=== PATIENT | female | born 1975 | race Asian ===

== ENCOUNTER → 2019-12-14 12:10 | Outpatient (CLI) | payer OTHER, SELFPAY ==
--- NOTE | 2019-12-14 | DI.US.S_ITS ---
PROCEDURE: US PELVIC COMPLETE INDICATIONS: LEIOMYOMA OF UTERUS TECHNIQUE: Real-time scanning was performed of the pelvic organs, with image documentation. Additional endovaginal scanning was necessary due to incomplete visualization of the adnexal and endometrial structures by transabdominal scanning. COMPARISON: None. FINDINGS: Transabdominal scanning: Limited scanning through the kidneys shows no hydronephrosis. No pathologic free abdominal or pelvic fluid. Endovaginal scanning: Uterus: Uterus is normal in size at 6.6 x 5.1 x 6.7 cm. The endometrium measures 6.0 mm in combined thickness. Posterior intramural fibroid measuring 4.4 x 3.9 x 4.4 cm. Pedunculated subserosal fibroid measuring 3.3 x 2.9 x 5.2 cm. Ovaries: Ovaries are normal bilaterally and there is a 1.5 cm physiologic cyst associated with the left ovary. IMPRESSION: Uterine fibroids, largest measuring up to 5.2 cm. Dictated by: Anand Oviedo [facility] Interpreted: Blake Wakefield MD on 12/14/2019 at 16:42 Approved by: Blake Wakefield M.D. on 12/14/2019 at 17:56
== END ==
PROVIDERS: Referring Provider Physician Assistant; Visit Provider Physician Assistant
DX: D25.1 Intramural leiomyoma of uterus (principal); D25.2 Subserosal leiomyoma of uterus
CPT/HCPCS: 76830; 76856

== ENCOUNTER → 2019-12-21 11:14 | Outpatient (CLI) | payer OTHER, SELFPAY | PROVIDERS: PCP Obstetrics & Gynecology; Referring Provider Obstetrics & Gynecology; Visit Provider Obstetrics & Gynecology | DX: N97.0 Female infertility associated with anovulation (principal) | CPT/HCPCS: 36415; 82397 ==

== ENCOUNTER 2020-07-28 16:44 | Emergency (ER) | payer OTHER, SELFPAY ==
[2020-07-28 16:59] VITALS: BP 136/87; PULSE 65; RESP 16; TEMP 37.2; O2SAT 100
--- NOTE | 2020-07-28 17:14 | ED_ITS ---
HPI - Abdominal Pain <AUGUSTUS Cali - Last Filed: 07/28/20 19:47> General Chief Complaint: Abdominal Pain Stated Complaint: lower abd pain, back pain Time Seen by Provider: 07/28/20 16:49 Source: family Mode of arrival: Family Vehicle Limitations: language barrier (Vietmanmese speaking) History of Present Illness HPI narrative: This is a 44-year-old female, nonsmoker, who has contributory history of fibroids and medical history of mild arthritis presents to ED with significant other with chief complain of right lower quadrant pain. Patient has been having intermittent discomfort around the menstruation but this time pain has been constant for last 4 days. Patient denies associated symptoms such as nausea, vomiting, fever, chills. Patient reports urinary frequency when she drinks tea but denies dysuria, hematuria, or urgency. reports last LMP ib 07/19/2020 and they are trying to conceive and waiting to be evaluated by HEMATOLOGY ONCOLOGY CONSULTANT specialist at [facility]. Patient had ultrasound test done in November before the Covid pandemic started which showed fibroids. 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 Ultrasound was done in November early this year which showed fibroid. Patient reports LMP was 07/19-07/21/20. Patient denies unusual vaginal discharge or history of STIs. Patient reports pain on right suprapubic area rates as 7/10 intermittent, radiates to back and cramping in character. She had not taken baclofen for Naprosyn today and last dose was 2 days ago. Patient denies urinary frequency unless she drinks large amount of liquid and other urinary symptoms. Patient denies other associated symptoms such as fever, chills, nausea or vomiting. Related Data Home Medications Medication Instructions Recorded Confirmed baclofen PO PRN 12/21/19 08/02/20 naproxen PO PRN 12/21/19 08/02/20 Allergies Allergy/AdvReac Type Severity Reaction Status Date / Time No Known Drug Allergies Allergy Verified 08/02/20 14:42 Review of Systems <AUGUSTUS Cali - Last Filed: 07/28/20 19:47> Review of Systems Narrative: General: Denies fever, chills, fatigue, malaise, sweats. HEENT: Denies sinus pain, ear pain, sore throat, difficulty swallowing, dizziness. Respiratory: Denies dyspnea, cough, wheezing, hemoptysis, sputum. Cardiovascular: Denies chest pain, palpitations, orthopnea, edema. Gastrointestinal: See HPI : See HPI Musculoskeletal: Denies weakness, joint pain or bony pain. Skin: Denies rash, skin lesions, or other. Neurologic: Denies weakness, headache, numbness, change in speech, confusion, seizures, incoordination. Psychiatric: No concerning psychosocial issues. 12-point review of systems is negative except for those stated above. Patient History <AUGUSTUS Cali - Last Filed: 07/28/20 19:47> Medical History (Updated 07/28/20 @ 18:51 by AUGUSTUS Cali) Fibroid, uterine (Acute) Painful menstrual periods (Chronic ~2018) Social History Smoking Status: Never smoker Smoking Status: Never smoker alcohol intake frequency: 0-2 drinks per day Substance Use Type: does not use Exam <AUGUSTUS Cali - Last Filed: 07/28/20 19:47> Narrative Exam Narrative: GEN: Alert, oriented x 3, well appearing and nourished, and in no acute distress. Head: Normal cephalic, atraumatic. No scalp or temporal tenderness, palpable mass or rash. EYES: Pupils are equal, round, and reactive to light and accommodation. Extraocular muscles are intact bilaterally. There is no subconjunctival hemorrhage, exudate and sclera non-icteric. ENT: Hearing grossly intact. Nose without bleeding, purulent discharge or deviation. Facial sinuses nontender to palpate. Mucous membrane moist, no mucosal lesion. Throat without erythema, tonsillar hypertrophy or exudate. Uvula in midline, airway patent. Neck: Trachea in midline. No JVD, non-tender without lymphadenopathy. No mass es or thyroid megaly. Supple, non-tender and no meningeal signs. CARDIAC: Normal regular rate and rhythm without murmurs, gallops, or rubs. No chest wall tenderness. No peripheral edema, cyanosis or pallor. Capillary refill is less than 2 seconds. RESPIRATORY: Lungs are clear to auscultate bilaterally. No cough, wheezes, rales, or rhonchi. No stridor, respiratory distress, increase work of breathing, or accessary muscle used. ABD: Abdomen soft and non-distended. No guarding or rebound tenderness to palpate. Tenderness to palpate in right suprapubic region. Bowel sounds are normal in all 4 quadrants. There is no palpable masses or organomegaly. EXT: Full painless ROM of all extremities with no loss of sensation, strength, effusion or edema. SKIN: Warm, dry, normal color for patient. No erythema, lesions or rash over visible areas. BACK: Nontender without deformity or crepitance. No flank tenderness. NEUROLOGICAL: Alert and oriented to place, time and person. Sensation and motor function intact bilaterally. No facial droops, dysphasia. PSYCHIATRIC: Good judgement and reason, without hallucinations, abnormal affect or abnormal behaviors during the examination. Initial Vital Signs Initial Vital Signs: Vital Signs Temperature 98.9 F 07/28/20 16:59 Pulse Rate 65 07/28/20 16:59 Respiratory Rate 16 07/28/20 16:59 Blood Pressure 136/87 07/28/20 16:59 Pulse Oximetry 100 07/28/20 16:59 <Hernan Hinds DO - Last Filed: 08/05/20 18:06> Initial Vital Signs Initial Vital Signs: Vital Signs Temperature 98.9 F 07/28/20 16:59 Pulse Rate 65 07/28/20 16:59 Respiratory Rate 16 07/28/20 16:59 Blood Pressure 136/87 07/28/20 16:59 Pulse Oximetry 100 07/28/20 16:59 Scores <AUGUSTUS Cali - Last Filed: 07/28/20 19:47> GCS [place] coma scale eye opening: Spontaneous [place] coma scale verbal response: Orientated [place] coma scale motor response: Obey commands [place] coma scale total score: 15 qSOFA Altered Mental Status (GCS <15): No Respiratory rate greater than/equal to 22: No Systolic blood pressure less than or equal to 100: No qSOFA Total: 0 0-1 Not High Risk 1-3 High risk Course <AUGUSTUS Cali - Last Filed: 07/28/20 19:47> Orders Ordered: Discontinued Medications Cefazolin Sodium (Keflex 250 Mg Prepack) 1 bottle MISC SEEINSTR ONE Stop: 07/28/20 18:42 Last Admin: 07/28/20 18:52 Dose: 8 cap Documented by: RMARTIN Sodium Chloride (Normal Saline 0.9%) 1,000 mls @ 150 mls/hr IV CONT REYNALDO Last Infusion: 07/28/20 18:18 Dose: 0 mls/hr Documented by: Admin: 07/28/20 18:00 Dose: 150 mls/hr Documented by: RSTONE Sodium Chloride (Normal Saline 0.9%) 1,000 mls @ 1,000 mls/hr IV BOLUS ONE Stop: 07/28/20 19:08 Last Infusion: 07/28/20 19:08 Dose: 0 mls/hr Documented by: Admin: 07/28/20 18:21 Dose: 1,000 mls/hr Documented by: RMARTTAE Ketorolac Tromethamine (Toradol) 15 mg IV NOW ONE Stop: 07/28/20 17:03 Last Admin: 07/28/20 17:59 Dose: 15 mg Documented by: HALLIE Ketorolac Tromethamine (Toradol) 15 mg IV NOW ONE Stop: 07/28/20 17:45 Last Admin: 07/28/20 19:22 Dose: Not Given Documented by: CHARLIE Vital Signs Vital signs: Vital Signs - 8 hr 07/28/20 16:59 07/28/20 19:07 Temperature 98.9 F Pulse Rate 65 65 Respiratory Rate 16 14 Blood Pressure 136/87 128/87 Pulse Oximetry 100 100 <Hernan Hinds DO - Last Filed: 08/05/20 18:06> Orders Ordered: Discontinued Medications Cefazolin Sodium (Keflex 250 Mg Prepack) 1 bottle MISC SEEINSTR ONE Stop: 07/28/20 18:42 Last Admin: 07/28/20 18:52 Dose: 8 cap Documented by: RMARTIN Sodium Chloride (Normal Saline 0.9%) 1,000 mls @ 150 mls/hr IV CONT REYNALDO Last Infusion: 07/28/20 18:18 Dose: 0 mls/hr Documented by: Admin: 07/28/20 18:00 Dose: 150 mls/hr Documented by: RSTONE Sodium Chloride (Normal Saline 0.9%) 1,000 mls @ 1,000 mls/hr IV BOLUS ONE Stop: 07/28/20 19:08 Last Infusion: 07/28/20 19:08 Dose: 0 mls/hr Documented by: Admin: 07/28/20 18:21 Dose: 1,000 mls/hr Documented by: MARCELLE Ketorolac Tromethamine (Toradol) 15 mg IV NOW ONE Stop: 07/28/20 17:03 Last Admin: 07/28/20 17:59 Dose: 15 mg Documented by: HALLIE Ketorolac Tromethamine (Toradol) 15 mg IV NOW ONE Stop: 07/28/20 17:45 Last Admin: 07/28/20 19:22 Dose: Not Given Documented by: CHARLIE Vital Signs Vital signs: Vital Signs - 8 hr 07/28/20 16:59 07/28/20 19:07 Temperature 98.9 F Pulse Rate 65 65 Respiratory Rate 16 14 Blood Pressure 136/87 128/87 Pulse Oximetry 100 100 MDM - Abdominal Pain <Raciel AUGUSTUS Ye - Last Filed: 07/28/20 19:47> Differential Diagnosis Differential diagnosis: Likely abdominal pain, acute appendicitis, calculus of kidney and other (Ovarian cyst, fibroids, ectopic ) Medical Records Attestation: I reviewed the patient's medical records. Lab Data Attestation: I reviewed the patient's lab results. Result diagrams: 07/28/20 17:22 07/28/20 17:22 Labs: Lab Results 07/28/20 07/28/20 07/28/20 Range/Units 17:22 17:22 17:40 WBC 8.4 (4.5-11.0) X10^3/uL RBC 4.45 (4.0-5.2) X10^6/uL Hgb 12.4 (12.0-16.0) g/dL Hct 36.8 (36-46) % MCV 82.8 (80-100) fL MCH 28.0 (26-34) PG MCHC 33.8 (30-36) % RDW 13.4 (11.6-14.8) % Plt Count 334 (150-400) X10^3/uL Neut % (Auto) 54.7 (50-75) % Lymph % (Auto) 35.8 (25-40) % [place] % (Auto) 8.4 (3-14) % Eos % (Auto) 0.8 L (2-4) % Baso % (Auto) 0.3 (0-2) % Neut # (Auto) 4600 (2507-2031) /uL Lymph # (Auto) 3000 (9925-7900) /uL [place] # (Auto) 700 (0-900) /uL Eos # (Auto) 100 (0-450) /uL Baso # (Auto) 0 (0-100) /uL Sodium 139 (137-145) mmol/L Potassium 3.7 (3.4-5.1) mmol/L Chloride 103 (98-107) mmol/L Carbon Dioxide 30 (22-32) mmol/L BUN 17 (7-17) mg/dL Creatinine 1.11 H (0.52-1.04) mg/dL Estimated GFR 53.9 L (>60) mL/min BUN/Creatinine Ratio 15.3 (6-22) Glucose 103 H (70-100) mg/dL Calcium 9.4 (8.4-10.2) mg/dL Total Bilirubin 0.2 (0.2-1.3) mg/dL AST 24 (14-36) IU/L ALT 12 (<35) IU/L Alkaline Phosphatase 47 (38-126) U/L Total Protein 8.2 (6.3-8.2) g/dL Albumin 4.6 (3.5-5.0) g/dL Globulin 3.6 (1.7-4.1) g/dL Albumin/Globulin Ratio 1.3 (1.0-2.8) Lipase 157 (23-300) U/L Urine RBC 0-1/hpf (0-5/HPF) Urine WBC 5-10/hpf H (0-5/HPF) Ur Squamous Epith Cells 1-5 /hpf (0-5/HPF) Urine Bacteria Moderate (10-30) H (None) Ur Culture Indicated? Specimen cultured Point of care testing: Point of Care Testing Test Results Negative Urine Dip Bedside Urine Glucose Negative Bedside Urine Bilirubin - Negative Bedside Urine Ketone - Negative Urine Specific [place] 1.020 Bedside Urine Occult Blood ++ Bedside Urine pH 6.0 Bedside Urine Protein - Negative Bedside Urine Urobilinogen - Negative Bedside Urine Nitrite - Negative Bedside Urine Leukocytes +/- 15 Esterase MDM Narrative Medical decision making narrative: This is a 44 year female who presents to ED with chief complain of right-sided suprapubic pain radiating to back without fe booker, chills, nausea or vomiting, vaginal discharge, vaginal bleeding. Patient reports urinary frequency only when she drinks large amount of liquid. No other urinary symptoms. 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 Patient and her partner are trying to conceive. Patient reports the location and character of pain are same greater than 6 months but today pain has radiated to back and pain remaining even after menstruation. No leukocytosis or elevated neutrophils. Slightly decreased kidney function with creatinine level of 1.11 with GFR of 53.9. No baseline kidney function test in the past to compare. Otherwise unremarkable chemistry, liver function test, and lipase. Urine test was negative for . POC urine test shows small amount of leuk esterase and occult blood. Patient's presentation and physical exam is not consistent with appendicitis or renal stone/colic. Micro urine test shows urine WBC of 5-10 and moderate bacteria of 10-30. Given normal blood test and unremarkable abdominal physical exam with abdominal pain that has not changed for last 6 months with known uterine fibroids, further imaging test was deferred at this time. Patient was treated with low dose of Keflex 250 mg (renal adjusted dose) q.i.d. for 7 days for UTI. Strict Return precautions were discussed with patient and advised to follow up with primary care physician and railroad wheels and axles inspector provider for her symptoms and slightly decreased kidney function test. Patient and significant other verbalized understanding in agreement with the treatment plan. <Hernan Hinds, - Last Filed: 08/05/20 18:06> Lab Data Labs: Lab Results 07/28/20 07/28/20 07/28/20 Range/Units 17:22 17:22 17:40 WBC 8.4 (4.5-11.0) X10^3/uL RBC 4.45 (4.0-5.2) X10^6/uL Hgb 12.4 (12.0-16.0) g/dL Hct 36.8 (36-46) % MCV 82.8 (80-100) fL MCH 28.0 (26-34) PG MCHC 33.8 (30-36) % RDW 13.4 (11.6-14.8) % Plt Count 334 (150-400) X10^3/uL Neut % (Auto) 54.7 (50-75) % Lymph % (Auto) 35.8 (25-40) % [place] % (Auto) 8.4 (3-14) % Eos % (Auto) 0.8 L (2-4) % Baso % (Auto) 0.3 (0-2) % Neut # (Auto) 4600 (4711-1925) /uL Lymph # (Auto) 3000 (0746-9768) /uL [place] # (Auto) 700 (0-900) /uL Eos # (Auto) 100 (0-450) /uL Baso # (Auto) 0 (0-100) /uL Sodium 139 (137-145) mmol/L Potassium 3.7 (3.4-5.1) mmol/L Chloride 103 (98-107) mmol/L Carbon Dioxide 30 (22-32) mmol/L BUN 17 (7-17) mg/dL Creatinine 1.11 H (0.52-1.04) mg/dL Estimated GFR 53.9 L (>60) mL/min BUN/Creatinine Ratio 15.3 (6-22) Glucose 103 H (70-100) mg/dL Calcium 9.4 (8.4-10.2) mg/dL Total Bilirubin 0.2 (0.2-1.3) mg/dL AST 24 (14-36) IU/L ALT 12 (<35) IU/L Alkaline Phosphatase 47 (38-126) U/L Total Protein 8.2 (6.3-8.2) g/dL Albumin 4.6 (3.5-5.0) g/dL Globulin 3.6 (1.7-4.1) g/dL Albumin/Globulin Ratio 1.3 (1.0-2.8) Lipase 157 (23-300) U/L Urine RBC 0-1/hpf (0-5/HPF) Urine WBC 5-10/hpf H (0-5/HPF) Ur Squamous Epith Cells 1-5 /hpf (0-5/HPF) Urine Bacteria Moderate (10-30) H (None) Ur Culture Indicated? Specimen cultured Point of care testing: Point of Care Testing Test Results Negative Urine Dip Bedside Urine Glucose Negative Bedside Urine Bilirubin - Negative Bedside Urine Ketone - Negative Urine Specific [place] 1.020 Bedside Urine Occult Blood ++ Bedside Urine pH 6.0 Bedside Urine Protein - Negative Bedside Urine Urobilinogen - Negative Bedside Urine Nitrite - Negative Bedside Urine Leukocytes +/- 15 Esterase Discharge Plan Departure Patient Disposition: Home Clinical Impression: Decreased renal function UTI (urinary tract infection) Qualifiers: Urinary tract infection type: site unspecified Hematuria presence: with hematuria Qualified Code(s): N39.0 - Urinary tract infection, site not specified Fibroid, uterine Qualifiers: Uterine leiomyoma location: unspecified location Qualified Code(s): D25.9 - Leiomyoma of uterus, unspecified Discharge Date/Time: 07/28/20 20:01 Instructions: DI for Uterine Fibroids, DI for Urinary Tract Infection (UTI), DI for Abdominal Pain-Adult Activity Restrictions/Additional Instructions: You have been diagnosed with [UTI, known fibroids, slightly decreased kidney function. Urine culture is pending. You were treated with 1st dose of Keflex 250 mg in ED. ultrasound back in November 2019 shows posterior intramural fibroid and pedunculted subserosal fibroids. Cr today is 1.11 and eGFR is 53.9. You were provided with IV fluid and medicated with IV Toradol 15mg. You will receive a phone call from us if requires changes in antibiotic medications.]. What to do: *Take your medications as directed. Please take [id number] Tylenol and pain medication that you have at home as needed. Please take it with food to decrease GI irritation. Please hydrate adequately next few days. Additional 5 day course of Keflex has been transmitted to [facility]. *Follow up with your primary care provider in 2-3 days, call for an appointment. Let them know you were seen in the ED and that we asked you to be seen in follow up. Please follow-up with abdominal pain, function test. Please contact railroad wheels and axles inspector specialist to follow up on uterine fibroids and pain. *Return to ED if you have any new, worsening, or concerning symptoms, such as [worsening pain, fever, chills, heavy vaginal bleeding, back pain, unable to tolerate fluids, chest pain, breathing difficulty, or any acute concerns]. Prescriptions: No Action naproxen PO PRNRF: 0 baclofen PO PRNRF: 0 Referrals: Isabelle Kee MD [Primary Care Provider] - <Hernan Hinds DO - Last Filed: 08/05/20 18:06> Cosign ED Attending Rachelature Attestation: I was immediately available in the department for consultation. This documentation has been reviewed and I agree with assessment and plan. Supervised by Hernan Hinds, DO
[2020-07-28 17:30] LABS: Add Manual Diff / Slide Review NO; Basophils Absolute Auto 0 /uL (0-100); Basophils Percent Auto 0.3 % (0-2); Eosinophils Absolute Auto 100 /uL (0-450); Eosinophils Percent Auto 0.8 % (2-4); Hematocrit 36.8 % (36-46); Hemoglobin 12.4 g/dL (12.0-16.0); Lymphocytes Absolute Auto 3000 /uL (1100-4500); Lymphocytes Percent Auto 35.8 % (25-40); Mean Corpuscular HGB Conc 33.8 % (30-36); Mean Corpuscular Volume 82.8 fL (80-100); Monocytes Absolute Auto 700 /uL (0-900); Monocytes Percent Auto 8.4 % (3-14); Neutrophils Absolute Auto 4600 /uL (1500-7000); Neutrophils Percent Auto 54.7 % (50-75); Platelet Count 334 X10^3/uL (150-400); Red Blood Cell Count 4.45 X10^6/uL (4.0-5.2); Red Cell Distribution Width 13.4 % (11.6-14.8); White Blood Cell Count 8.4 X10^3/uL (4.5-11.0)
[2020-07-28 17:43] LABS: Alanine Aminotransferase 12 IU/L (<35); Albumin 4.6 g/dL (3.5-5.0); Albumin Globulin Ratio 1.3 (1.0-2.8); Alkaline Phosphatase 47 U/L (38-126); Aspartate Aminotransferase 24 IU/L (14-36); BUN Creatinine Ratio 15.3 (6-22); Bilirubin Total 0.2 mg/dL (0.2-1.3); Blood Urea Nitrogen 17 mg/dL (7-17); Calcium 9.4 mg/dL (8.4-10.2); Carbon Dioxide 30 mmol/L (22-32); Chloride 103 mmol/L (98-107); Estimated Glomerular Filt Rate 53.9 mL/min (>60); Globulin 3.6 g/dL (1.7-4.1); Glucose 103 mg/dL (70-100); HEMOLYSIS < 15 (0-50); Lipase 157 U/L (23-300); Potassium 3.7 mmol/L (3.4-5.1); Sodium 139 mmol/L (137-145); Total Protein 8.2 g/dL (6.3-8.2)
[2020-07-28 17:56] LABS: Bacteria Urine Moderate (10-30); Culture Indicated Urine Specimen Cultured; RBC Urine 0-1/HPF (0-5/HPF); Squamous Epithelial Cell Urine 1-5 /HPF (0-5/HPF); WBC Urine 5-10/HPF (0-5/HPF)
[2020-07-28] MEDS: KETOROLAC 60 MG/2 ML VIAL 15 MG IV (17:59)
[2020-07-28] MEDS: SODIUM CHLORIDE 0.9% 1,000 ML 150 ML IV (18:00)
[2020-07-28] MEDS: SODIUM CHLORIDE 0.9% 1,000 ML 1000 ML IV (18:21)
[2020-07-28] MEDS: cephALEXin 250 MG PREPACK 1 BOTTLE MISC (18:52)
[2020-07-28 19:07] VITALS: BP 128/87; PULSE 65; RESP 14; O2SAT 100
== END 2020-07-28 20:01 | disposition home or self-care (01) ==
PROVIDERS: Emergency Provider Nurse Practitioner Family; PCP Obstetrics & Gynecology
DX: N39.0 Urinary tract infection, site not specified (principal); D25.9 Leiomyoma of uterus, unspecified; N28.9 Disorder of kidney and ureter, unspecified
CPT/HCPCS: 36415; 80053; 81003; 81015; 81025; 83690; 85025; 87086; 96361; 96374; 99284; J1885

== ENCOUNTER 2020-09-03 11:34 | Day surgery (SDC) | payer OTHER, SELFPAY ==
[2020-08-29 13:40] VITALS: BMI 27.8
[2020-09-03] VITALS (12 sets, daily range): BP systolic 97–116; BP diastolic 60–72; PULSE 63–79; RESP 12–19; TEMP 36.2–37.5; O2SAT 97–100; BMI 27.2
--- NOTE | 2020-09-03 | PATH_ITS ---
[facility] Accession Number: [id number] . 01 Material submitted: . ovary - RIGHT OVARIAN CYST . 02 Diagnosis: Right Ovarian Cyst, Excision: Fragments of benign hemorrhagic corpus luteum cyst. No evidence of malignancy. [facility] 09/05/2020 1503 Local . 02 Comment: As part of routine quality improvement manager, Dr. Diaz has reviewed this case and agrees with the diagnosis above. . . . . 02 Electronically signed: . Howie Gomez MD, PhD, Pathologist NPI- [id number] . 01 Gross description: . Received in formalin, labeled right ovarian cyst, and consists of multiple thao to thao-pink fragments of soft tissue measuring 2.5 x 2.0 x 0.8 cm in aggregate. No papillary excrescences are identified. The specimen is serially sectioned and entirely submitted in cassettes A1-A2. ([id number]) /MRV 09/04/2020 1153 Local . 02 Pathologist provided ICD-10: N83.11 . 02 CPT . 148507 Performed at: 01 [facility] [address], [place], [place] [id number] MD Jamey Velasco MD Phone: [phone] Performed at: 02 [facility] [address] [place], [place] [id number] MD Amberly Diaz MD Phone: [phone]
[2020-09-03 12:38] LABS: COVID19 -Nasal RAPID Negative (Negative)
[2020-09-03] MEDS: LACTATED RINGERS 1,000 ML 42 ML IV ×2 (13:07→15:25)
--- NOTE | 2020-09-03 13:21 | SUR.PREOP ---
pt denied overlock operator for surgical visit. pt at bedside during pre op during admit translating for pt.
--- NOTE | 2020-09-03 13:32 | P.HP_ITS ---
History of Present Illness History of Present Illness Date Patient Seen: 09/03/20 Time Patient Seen: 13:32 Chief complaint: [facility] [place] Narrative: Patient is a 44-year-old 0 who presents for a diagnostic laparoscopy with excision pedunculated fibroid This is being done due to pelvic pain, intermittent menorrhagia, and a pedunculated fibroid Patient History Medical History (Updated 08/12/20 @ 00:00 by ) Fibroid, uterine Painful menstrual periods (~2018) Family & Social History Social History: household members spouse Tobacco & Substance use: Smoking Status Never smoker alcohol intake never alcohol intake frequency 0-2 drinks per day Substance Use Type does not use Meds Home Medications and Allergies Home Medications Medication Instructions Recorded Confirmed Type ibuprofen 600 mg PO TID 09/03/20 09/03/20 History Allergies Allergy/AdvReac Type Severity Reaction Status Date / Time No Known Drug Allergies Allergy Verified 09/03/20 12:56 Exam Vital Signs (past 8 hours): - 09/03/20 12:58 Temperature 97.1 F L Pulse Rate 73 Respiratory Rate 16 Blood Pressure 110/69 Pulse Oximetry 100 Oxygen Delivery Method Room Air Narrative Exam Narrative: HEENT: No thyromegaly, no anterior cervical or supraclavicular lymphadenopathy. Lungs:Clear to auscultation bilaterally, no wheezes. Cardiovascular: Regular rate and rhythm, no murmurs, rubs, or gallops. Abdomen: No scars. No hepatosplenomegaly. No masses palpable. External genitalia: Normal Vagina: Normal Cervix: Normal Bimanual exam: 11 Week size uterus. Mobile. Fibroid palpable at the fundus of the uterus Rectal: No masses. Objective Labs Labs: Laboratory Results - last 24 hr 09/03/20 11:41 COVID-19 PCR Negative Assessment & Plan Assessment & Plan narrative: Assessment: 44-year-old 0 with a fibroid uterus, intermittent menorrhagia, and pelvic pain Plan: Diagnostic laparoscopy with excision pedunculated fibroid and chromotubation The risks, benefits, and alternatives to the procedure were explained to the patient. The risks including bleeding, infection, injury to the bowel, bladder, or ureters. She understands these risks and agrees to proceed. A full par Q was held and consent form was signed. COVID-19 COVID-19 status: Negative Result date/Date tested (Pos, Neg/Pending): 09/03/20 Time Spent With Patient Time with patient: 15-24 minutes
--- NOTE | 2020-09-03 13:35 | PM.PREOP ---
Pre-operative Note COVID-19 COVID-19 status: Negative Result date/Date tested (Pos, Neg/Pending): 09/03/20 Interval Note History & Physical reviewed/Exam performed by Physician: Yes Changes to H&P: No H&P completed within 30 days and has changed as indicated here:: 09/03/20
--- NOTE | 2020-09-03 14:09 | SUR.OPER ---
Lithotomy on padded OR bed. [place] Pad Positioner under torso. Head on pillow, arms padded and tucked at sides. Legs secured in padded yellow fins stirrups.
[2020-09-03] MEDS: BUPIVACAINE 0.5% W/ EPI (PF) 30 ML VIAL INJ (14:28)
[2020-09-03] MEDS: METHYLENE BLUE 50 MG/10 ML VIAL 10 MG IV (14:29)
--- NOTE | 2020-09-03 14:45 | P.OP_ITS ---
Operative Date/Time/Diagnoses Date of procedure: 09/03/20 Time of procedure: 14:46 Pre-op diagnosis: Pelvic pain Pedunculated fibroid Intermittent menorrhagia Post-op diagnosis: same Procedure & Clinicians Procedure: Procedures Operation Date: 09/03/20 13:00 Actual Procedures Side Surgeon p Diagnostic Laparoscopy,with excision of right ovarian cyst, Chromopertubation Helen Stone MD Indications: Intermittent menorrhagia Pedunculated fibroid Pelvic pain Dysmenorrhea Surgeon: Helen Stone Anesthesia Type: General Operative Notes Findings: Twelve week size multi fibroid uterus Large hemorrhagic cyst on the tip of the left ovary measuring 4 cm Normal liver and gallbladder Normal right ovary and tube Normal left tube Bilateral tubes patent Closure Type: primary Specimen(s): other (Right ovarian cyst) Estimated blood loss (mL): 5 Blood products transfused: none Procedure in detail: After informed consent was obtained, the patient was taken to the operating room where she was placed in the dorsal supine position. After adequate general endotracheal anesthesia was achieved, she was placed in the dorsal lithotomy position, and prepped and draped in the usual sterile fashion. A time-out was performed. A bivalve speculum was placed into the vagina and the anterior lip of the cervix grasped with a single-tooth tenaculum. The cervical os was sequentially dilated until the Zumi uterine manipulator could pass easily into the endometrial cavity. Single-tooth tenaculum was removed from the anterior lip of the cervix. The bivalve speculum was removed from the vagina. Attention was then turned to the abdomen where 6 cc of 0.5% Marcaine with epinephrine were injected in the umbilical fold. A 5 mm incision was made. The Veress needle was placed into the peritoneal cavity, and its placement confirmed by aspiration and drop test. The abdominal cavity was insufflated with 3.1 L of CO2. The Veress needle was removed and a 5 mm trocar was placed without difficulty. Initial inspection of the pelvis and abdomen revealed the findings noted above. Two other 5 mm incisions were made after 6 cc of 0.5% Marcaine with epinephrine were injected. One was above the pubic symphysis, and the other was 4 cm lateral to the midline on the left side. The left ovarian cyst was grasped with an atraumatic grasper. Using the PlasmaKinetic was settings of 40 w, the cyst was excised. The edges were cauterized for hemostasis. The uterus was deviated due to the fibroid. There appeared to be a large fibroid in the fundus of the uterus but it was not pedunculated it was intramural. The tube on the right side was entering the uterus far below the fibroid. There was a 2nd fibroid in the lower uterine segment posteriorly. The fundal fibroid measured approximately 8 cm. The lower uterine segment fibroid about 6 cm. Dilute methylene blue was placed through the Zumi uterine manipulator and there was spill from both tubes. The instruments were removed from the abdomen. The CO2 was allowed to escape. The incisions were repaired with 4 0 Biosyn in a subcuticular fashion. Mastisol, Steri-Strips, and bandages were placed. The Zumi uterine manipulator was removed from the uterus. Sponge, lap, and instrume nt counts were correct x2. The patient tolerated the procedure well, and was taken to PACU in stable condition. Complications: none Post-operative Condition: stable Disposition: PACU Plan for aftercare: Home after recovery
--- NOTE | 2020-09-03 16:44 | SUR.PHASEII ---
returned with filled prescriptions, dressings remained c/d/i., small amount of bloody drainage on pad, left when ready and left in stable condition.
== END 2020-09-03 16:35 | disposition home or self-care (01) ==
PROVIDERS: PCP Obstetrics & Gynecology; Referring Provider Obstetrics & Gynecology; Visit Provider Obstetrics & Gynecology
PROC: (CPT 49320; principal; 2020-09-03 13:00)
DX: N83.11 Corpus luteum cyst of right ovary (principal); D25.1 Intramural leiomyoma of uterus; Z11.59 Encounter for screening for other viral diseases
CPT/HCPCS: 58662; 87635; J1885; J2250; J3010; Q9968

== ENCOUNTER → 2020-12-28 09:57 | Outpatient (CLI) | payer OTHER, SELFPAY ==
[2020-12-28 10:51] LABS: HCG Quantitative /Beta subunit 274.9 mIU/mL
== END ==
PROVIDERS: Referring Provider Obstetrics & Gynecology; Visit Provider Obstetrics & Gynecology
DX: Z32.02 Encounter for pregnancy test, result negative (principal)
CPT/HCPCS: 36415; 84702

== ENCOUNTER → 2021-01-01 09:00 | Outpatient (CLI) | payer OTHER, SELFPAY ==
[2021-01-01 10:27] LABS: HCG Quantitative /Beta subunit 1425.4 mIU/mL
== END ==
PROVIDERS: Referring Provider Obstetrics & Gynecology; Visit Provider Obstetrics & Gynecology
DX: Z32.01 Encounter for pregnancy test, result positive (principal)
CPT/HCPCS: 36415; 84702

== ENCOUNTER 2021-01-21 22:49 | Emergency (ER) | payer OTHER, SELFPAY ==
[2021-01-21 23:00] VITALS: BP 144/78; PULSE 74; RESP 16; TEMP 36.9; O2SAT 99
--- NOTE | 2021-01-21 23:06 | DI.US.S_ITS ---
PROCEDURE: US OB <= 14 WEEKS FETUS INDICATIONS: CRAMPING, BLEEDING OUTSIDE/PRIOR DATING DATA: Last menstrual period (LMP): 11/29/20 LMP-based estimated date of delivery (EMILI): 09/05/21. First dating scan (date and location): 01/21/21 this study. Estimated date of delivery (EMILI) from first dating scan: 09/07/21. TECHNIQUE: Real-time scanning was performed of the fetus and maternal pelvic organs, with image documentation. Endovaginal scanning was also performed to better visualize the fetus and maternal ovaries. COMPARISON: None. FINDINGS: Embryo: [place]-rump length 1.2 cm correlates with a gestational age of 7 weeks 3 days, +/-5 days. heart rate at 163 beats per minute is present. Note is made of 2 uterine fibroids, intramural, measuring up to 6.5 cm anterior at the midline and 6.3 cm posterior on the left. Measurement variability in dating: +/- 4 weeks by LMP, +/- 7 days by mean sac diameter (use before 6 weeks gestation if crown-rump length not able to be measured), +/- 5 days by crown-rump length (up to 8 weeks 6 days gestation), +/- 7 days by crown-rump length (up to 13 weeks 6 days gestation). Maternal organs: Ovaries not seen . IMPRESSION: Single living intrauterine gestation with delivery date projected to be centered on 09/07/21, plus or minus 5 days. Two uterine fibroids involve the myometrium measuring up to 6.5 cm. Dictated by: Vikas Cano M.D. on 01/22/2021 at 9:48 Approved by: Vikas Cano M.D. on 01/22/2021 at 9:50
[2021-01-21 23:24] LABS: Add Manual Diff / Slide Review NO; Basophils Absolute Auto 100 /uL (0-100); Basophils Percent Auto 1.1 % (0-2); Eosinophils Absolute Auto 100 /uL (0-450); Hematocrit 37.3 % (36-46); Hemoglobin 12.4 g/dL (12.0-16.0); Lymphocytes Absolute Auto 3400 /uL (1100-4500); Lymphocytes Percent Auto 31.4 % (25-40); Mean Corpuscular HGB Conc 33.4 % (30-36); Mean Corpuscular Hemoglobin 27.9 PG (26-34); Mean Corpuscular Volume 83.5 fL (80-100); Monocytes Absolute Auto 800 /uL (0-900); Monocytes Percent Auto 7.6 % (3-14); Neutrophils Absolute Auto 6400 /uL (1500-7000); Neutrophils Percent Auto 58.9 % (50-75); Platelet Count 350 X10^3/uL (150-400); Red Blood Cell Count 4.46 X10^6/uL (4.0-5.2); Red Cell Distribution Width 13.5 % (11.6-14.8); White Blood Cell Count 10.8 X10^3/uL (4.5-11.0)
[2021-01-22 00:10] LABS: HCG Quantitative /Beta subunit 46934 mIU/mL
--- NOTE | 2021-01-22 00:19 | ED_ITS ---
HPI - Female Genitourinary General Chief complaint: OB/Uterine Contractions Stated complaint: 7 WKS BLEEDING Time Seen by Provider: 01/21/21 23:17 Source: patient and family Mode of arrival: Ambulatory Limitations: no limitations History of Present Illness HPI Narrative: 45-year-old female nonsmoker is a at 7 weeks with a known history of fibroids presents with her significant other and a chief complaint of mild lower abdominal cramping in the passage of a decently large blood clot earlier tonight. She has no ongoing pain or bleeding. She denies any fever or chills. She denies any shortness of breath, dizziness, weakness or lightheadedness. She is established with Dr. Stone for follow-up next week. Complaint: vaginal bleeding Onset (ago): hour(s) Location: suprapubic Severity: mild Quality: Cramping Duration: constant Relieving factors: none Exacerbating factors: none Vaginal discharge: dark blood and blood clots Patient : Yes Related Data Home Medications Medication Instructions Recorded Confirmed acetaminophen 325 mg tablet 650 mg PO Q6H PRN 01/21/21 01/21/21 prenat.vits,rob,[id number] 1 tab PO DAILY 01/21/21 01/21/21 Allergies Allergy/AdvReac Type Severity Reaction Status Date / Time No Known Drug Allergies Allergy Verified 01/21/21 10:20 Review of Systems Constitutional Constitutional: Denies chills, Denies fatigue, Denies fever(s), Denies frequent falls, Denies lethargy and Denies weakness Eyes Eyes: Denies change in vision, Denies eye discharge, Denies irritation and Denies loss of vision ENT Ears, Nose, Mouth, and Throat: Denies change in voice, Denies dizziness, Denies neck pain, Denies sore throat and Denies throat swelling Cardiovascular Cardiovascular: Denies chest pain, Denies irregular heart rhythm, Denies lightheadedness, Denies palpitations, Denies dyspnea, Denies dyspnea on exertion and Denies orthopnea Respiratory Respiratory: Denies cough, Denies dyspnea, Denies dyspnea on exertion and Denies wheezing Gastrointestinal Gastrointestinal: Denies abdominal pain, Denies change in bowel habits, Denies diarrhea, Denies nausea and Denies vomiting Genitourinary Genitourinary: Reports abnormal vaginal bleeding Musculoskeletal Musculoskeletal: Denies neck pain and Denies numbness Integumentary/Breasts Skin/Breast: Denies pruritus, Denies erythema, Denies rash and Denies wounds Neurologic Neurologic: Denies behavioral changes, Denies confusion, Denies dizziness, Denies frequent falls, Denies loss of vision, Denies numbness and Denies weakness Psychiatric Psychiatric: Denies anxiety, Denies behavioral changes, Denies confusion, Denies depression, Denies homicidal ideation and Denies suicidal ideation Endocrine Endocrine: Denies fatigue, Denies flushing and Denies palpitations Hematologic/Lymphatic Hematologic/Lymphatic: Denies easy bruising Allergic/Immunologic Allergic/Immunologic: Denies urticaria, Denies throat swelling and Denies wheezing Patient History Medical History Accident AMA (advanced maternal age) primigravida 35+ Chronic headaches Fibroid, uterine History of indigestion Neck pain Painful menstrual periods (~2017) Surgical History S/P laparoscopy (~09/03/20) S/P wisdom tooth extraction (~10/2019) Family History Mother No problems noted. Father CVA (cerebral vascular accident) Grandmother No problems noted. Grandfather No problems noted. Grandmother No problems noted. Grandfather No problems noted. Sister Joint impingement affecting osseous tissue Sister No problems noted. Brother No problems noted. alcohol intake frequency: 0-2 drinks per day Substance Use Type: does not use Exam Narrative Exam Narrative: GEN: AOx3 and in mild distress EYES: Pupils are equal, round, and reactive to light and accommodation. Extr aoccular muscles are intact bilaterally. There is no subconjunctival hemorrhage or exudate. CHEST: Lungs are clear to auscultation bilaterally and free of wheezes, rales, or rhonchi. Heart rate is regular rhythm, there are no murmurs, clicks, rubs, or gallops. There is no chest wall tenderness. ABD: Abdomen is soft and nontender. There is no guarding or rebound. Bowel sounds are normal in all 4 quadrants. There is no mass or organomegaly. EXT: Full painless ROM of all extremities with no loss of sensation or strength. SKIN: Warm, pink, and dry. No erythema or rash Initial Vital Signs Initial Vital Signs: Vital Signs Temperature 98.4 F 01/21/21 23:00 Pulse Rate 74 01/21/21 23:00 Respiratory Rate 16 01/21/21 23:00 Blood Pressure 144/78 H 01/21/21 23:00 Pulse Oximetry 99 01/21/21 23:00 Course Orders Ordered: ED Orders 01/21/21 23:05 Complete Blood Count AUTO DIFF Stat HCG Quantitative /Beta subunit Stat 01/21/21 23:06 US OB <= 14 weeks fetus Stat 01/22/21 00:06 ABO RH Type Stat Vital Signs Vital signs: Vital Signs - 8 hr 01/21/21 23:00 01/22/21 00:45 Temperature 98.4 F Pulse Rate 74 70 Respiratory Rate 16 16 Blood Pressure 144/78 H 112/63 Pulse Oximetry 99 100 MDM - Female Genitourinary Lab Data Result diagrams: 01/21/21 23:05 Labs: Lab Results 01/21/21 01/21/21 01/21/21 Range/Units 23:05 23:05 23:05 WBC 10.8 (4.5-11.0) X10^3/uL RBC 4.46 (4.0-5.2) X10^6/uL Hgb 12.4 (12.0-16.0) g/dL Hct 37.3 (36-46) % MCV 83.5 (80-100) fL MCH 27.9 (26-34) PG MCHC 33.4 (30-36) % RDW 13.5 (11.6-14.8) % Plt Count 350 (150-400) X10^3/uL Neut % (Auto) 58.9 (50-75) % Lymph % (Auto) 31.4 (25-40) % [place] % (Auto) 7.6 (3-14) % Eos % (Auto) 1.0 L (2-4) % Baso % (Auto) 1.1 (0-2) % Neut # (Auto) 6400 (2854-7238) /uL Lymph # (Auto) 3400 (2240-9333) /uL [place] # (Auto) 800 (0-900) /uL Eos # (Auto) 100 (0-450) /uL Baso # (Auto) 100 (0-100) /uL HCG, Quant 31464 mIU/mL Blood Type B Positive Imaging Data US - OB: Radiologist's Impression: IUP 7weeks 3 days, FHT 160s. Otherwise normal. MDM Narrative Medical decision making narrative: at 7 weeks with very minimal symptoms in the passage of a clot earlier. Exam is very reassuring, no ongoing symptoms, stable vital signs. Ultrasound demonstrates an IUP with no significant findings otherwise. Rh type noted to be B positive. Patient has established relationship with Dr. Stone and plans to follow up next week. They have been given extensive return precautions and questions are answered to their apparent satisfaction Discharge Plan Departure Patient Disposition: Home Clinical Impression: Bleeding in early Instructions: DI for -- Discomforts and Remedies Activity Restrictions/Additional Instructions: *You have been diagnosed with [1st trimester bleeding. Blood counts and ultrasound are very reassuring, however close follow-up with Dr. Stone is important to continue to follow this] *What to do: *Take medications as directed *Follow up with your primary care provider in 2-3 days, call for an appointment. Let them know you were seen in the Emergency Department and that we ask that you be seen in follow up *Return to ER if you should have any new, worsening or concerning symptoms, such as [bleeding through more than 1 pad per hour, increasing pain, shortness o f breath, lightheadedness, fever greater than 101 or other bothersome symptoms] Prescriptions: No Action prenat.vits,rob,eqv-rtjb-cnkdc Tablet 1 tab PO DAILY RF: 0 acetaminophen [Tylenol] 325 mg tablet 650 mg PO Q6H PRNRF: 0 Referrals: Helen Stone MD [Primary Care Provider] -
[2021-01-22 00:45] VITALS: BP 112/63; PULSE 70; RESP 16; O2SAT 100
== END 2021-01-22 00:46 | disposition home or self-care (01) ==
PROVIDERS: Emergency Provider Emergency Medicine; PCP Obstetrics & Gynecology
DX: O20.9 Hemorrhage in early pregnancy, unspecified (principal); Z3A.01 Less than 8 weeks gestation of pregnancy
CPT/HCPCS: 36415; 76801; 76817; 84702; 85025; 86900; 86901; 99283; 99284

== ENCOUNTER → 2021-01-28 16:15 | Outpatient (CLI) | payer OTHER, SELFPAY ==
[2021-01-28 17:11] LABS: Appearance Urine UA SL CLOUDY; Bilirubin Urine UA NEGATIVE (NEGATIVE); Color Urine UA YELLOW; Glucose Urine UA NEGATIVE (Negative); Ketones Urine UA NEGATIVE (NEGATIVE); Leukocyte Esterase Urine UA NEGATIVE (NEGATIVE); Nitrite Urine UA NEGATIVE (Negative); Occult Blood Urine UA NEGATIVE (Negative); Protein Urine UA NEGATIVE (Negative); Urobilinogen Urine UA 0.2 E.U./dL (0.2)
[2021-01-28 17:18] LABS: pH Urine UA 6.5 (4.5-8.0)
[2021-01-28 19:01] LABS: Add Manual Diff / Slide Review NO; Basophils Absolute Auto 0 /uL (0-100); Basophils Percent Auto 0.6 % (0-2); Eosinophils Absolute Auto 100 /uL (0-450); Hematocrit 35.4 % (36-46); Hemoglobin 11.9 g/dL (12.0-16.0); Lymphocytes Absolute Auto 1800 /uL (1100-4500); Lymphocytes Percent Auto 29.3 % (25-40); Mean Corpuscular HGB Conc 33.5 % (30-36); Mean Corpuscular Hemoglobin 28.1 PG (26-34); Mean Corpuscular Volume 83.8 fL (80-100); Monocytes Absolute Auto 900 /uL (0-900); Monocytes Percent Auto 14.9 % (3-14); Neutrophils Absolute Auto 3300 /uL (1500-7000); Neutrophils Percent Auto 54.2 % (50-75); Platelet Count 287 X10^3/uL (150-400); Red Blood Cell Count 4.23 X10^6/uL (4.0-5.2); Red Cell Distribution Width 13.6 % (11.6-14.8); White Blood Cell Count 6.1 X10^3/uL (4.5-11.0)
[2021-01-29 01:59] LABS: Hepatitis B Surface Antigen NEGATIVE s/c (NEGATIVE)
[2021-01-29 02:19] LABS: HIV 1 & 2 Ab/Ag 4th Gen Combo NEGATIVE (NEGATIVE); Hep C Virus Ab w/Reflex Quant NEGATIVE s/c (NEGATIVE)
[2021-01-29 17:24] LABS: Rubella Antibody IgG 73.3 IU/mL (>15)
[2021-01-30 05:37] LABS: RPR Screen Non Reactive (Non Reactive)
[2021-01-30 09:07] LABS: Varicella IgG Antibody 558 index (Immune >165)
== END ==
PROVIDERS: Referring Provider Obstetrics & Gynecology; Visit Provider Obstetrics & Gynecology
DX: Z34.01 Encounter for supervision of normal first pregnancy, first trimester (principal)
CPT/HCPCS: 36415; 80055; 81003; 86787; 86803; 86850; 86900; 86901; 87086; 87389

== ENCOUNTER → 2021-02-15 14:56 | Outpatient (CLI) | payer OTHER, SELFPAY | PROVIDERS: Referring Provider Obstetrics & Gynecology; Visit Provider Obstetrics & Gynecology | DX: O09.511 Supervision of elderly primigravida, first trimester (principal); Z36.0 Encounter for antenatal screening for chromosomal anomalies | CPT/HCPCS: 36415; 81420 ==

== ENCOUNTER → 2021-03-29 09:49 | Outpatient (CLI) | payer OTHER, SELFPAY ==
[2021-04-02 04:36] LABS: AFP Value 78.2 ng/mL (.); Gest Age on Col Date 17.1 weeks (.); Insulin Dep Diabetes No (.); OSBR Risk 1IN 1083 (.); Results Report (.); Test Results *Screen Negative* (.)
== END ==
PROVIDERS: PCP Family Medicine; Referring Provider Obstetrics & Gynecology; Visit Provider Obstetrics & Gynecology
DX: Z34.90 Encounter for supervision of normal pregnancy, unspecified, unspecified trimester (principal); Z3A.17 17 weeks gestation of pregnancy
CPT/HCPCS: 36415; 82105

== ENCOUNTER 2021-05-06 07:33 | Outpatient (RCR) | payer OTHER, SELFPAY ==
--- NOTE | 2021-05-06 15:51 | PT.OPPOC ---
Physical, Occupational & Speech Therapy At [facility] Current Diagnoses Intramural leiomyoma of uterus (05/06/21) Low back pain (05/06/21) Other specified related conditions, unspecified trimester (05/06/21) Pelvic and perineal pain (05/06/21) Encounter for supervision of normal , unspecified, unspecified trimester (05/06/21) Visit Care Team Role Provider Type Marlon Sim DO Family Provider Physician Primary Care Provider Specialty: Family Practice Address: [address] [place] [address] Email: [email or web address] Helen Stone MD Attending Provider Physician Referring Provider Specialty: Gynecology OSTEOLOGY TEACHER Obstetrics Address: [address] [place] [address] Email: [email or web address] Plan Of Care PT-OP-T Assessment and Plan Start: 05/06/21 15:03 Freq: Status: Active Protocol: Document 05/06/21 07:30 AMB (Rec: 05/06/21 15:35 AMB [email or web address]) Physical Therapy Assessment Evaluation Complexity Number of Personal Factors/Comorbidities 1-2 Number of Body Systems Impaired 3 Clinical Presentation at Evaluation Evolving Impairments Impairments Activity Tolerance,Functional Activities,Pain,Posture,ROM Goals Two Impairment HEP Short Term Goal (STG) Bonilla will be independent and consistent with a HEP for her SI dysfunction and to improve her core stability. STG Duration 8 weeks One Impairment Pain Short Term Goal (STG) Bonilla will stand for 4 hours without increasing her R SI pain. STG Duration 4 weeks Group Home Goal (LTG) Bonilla will stand at work without back or SI pain throughout her shift. LTG Duration 8 weeks Assessment Summary Assessment Bonilla attends physical therapy with R SI pain and R anteriorly rotated innominate which responded well to manual therapy today. Further treatment/evaluation was limited due to patient getting to appointment late and needing log rider. Frequency of PT will be limited due to pt needing to take ferry to get to PT appointments. She would benefit from further manual therapy and core stabilization training for her SI dysfunction. Physical Therapy Plan Frequency and Duration Frequency of Treatment 1x/Week Duration of Treatment 10 weeks Plan of Care Start Date 05/06/21 Plan of Care End Date 07/15/21 Therapeutic Interventions Therapeutic Interventions Aquatic Therapy,Home Exercise Program,Joint Mobilizations, Manual Therapy,Neuromuscular Re-education,Self-Care/Home Management,Therapeutic Activities,Therapeutic Exercises Modalities Cold Pack/Ice Massage,Electric Stimulation,Hot Packs Next Visit Focus/Plan Next Note Type Treatment Note Next Visit Plan Reassess MET for R anterior rotated innominate, progress stabilization in quadruped Plan of Care Dates Plan of Care Start Date 05/06/21 Plan of Care End Date 07/15/21 Electronically Signed by: Mavis Escobar, PT 05/06/21 [id number] Please Sign and Return: I have reviewed this Plan of Care and certify that the skilled therapy services above are required to meet the patient?s needs. Physician Signature Date Printed Name and Credentials Clinical Instructor Signature Printed Name and Credentials
--- NOTE | 2021-05-06 15:51 | PT.OIE ---
Current Diagnoses Intramural leiomyoma of uterus (05/06/21) Low back pain (05/06/21) Other specified related conditions, unspecified trimester (05/06/21) Pelvic and perineal pain (05/06/21) Encounter for supervision of normal , unspecified, unspecified trimester (05/06/21) Past Medical History (Last Updated 03/01/21 @ 09:21 by Marlon Sim DO) Accident AMA (advanced maternal age) primigravida 35+ Carpal tunnel syndrome Chronic headaches Fibroid, uterine History of indigestion Neck pain Painful menstrual periods (~2017) S/P laparoscopy (~09/03/20) S/P wisdom tooth extraction (~10/2019) Past Surgical History (Last Reviewed 01/22/21 @ 00:21 by Hernan Hinds DO) S/P laparoscopy (~09/03/20) S/P wisdom tooth extraction (~10/2019) Visit Care Team Role Provider Type Marlon Sim DO Family Provider Physician Primary Care Provider Specialty: Family Practice Address: [address] [place] [address] Email: [email or web address] Helen Stone MD Attending Provider Physician Referring Provider Specialty: Gynecology [employer] DEVELOPER Obstetrics Address: [address] [place] [address] Email: [email or web address] Physical Therapy Initial Evaluation PT-OP-A Visit Information Start: 05/06/21 15:03 Freq: Status: Active Protocol: Document 05/06/21 07:30 AMB (Rec: 05/06/21 15:35 AMB [email or web address]) Out-Patient Physical Therapy Visit Information Visit Information Visit Type Treatment Note Visit Start Time 07:35 Visit Stop Time 08:25 Total Visit Minutes 50 Visit Number 1 PT-OP-B Current Condition Start: 05/06/21 15:03 Freq: Status: Active Protocol: Document 05/06/21 07:30 AMB (Rec: 05/06/21 15:35 AMB [email or web address]) Current Condition History of Current Condition Onset Date 1 month ago Current Complaints right sided low back pain with standing History of Current Condition Bonilla attends physical therapy with her . [address] interpreter is on phone during session. Bonilla's provides some of the history. She fell, sitting down hard on her butt about a month ago and has had pain in standing since. She works at the [employer] and stands for about 6 hours a shift. After about 3 hours she has increased pain. She points to her R SI when asked where her pain is. She also has bilateral hand numbness but that is not on her referral so she was directed to return to her PCP for that. Prior Functional Status Baseline Function- ADL's Independent Baseline Function- Mobility Independent Current Functional Impairments (Reported) Functional Limitations- ADL's Difficulty/pain with extended standing, does report she has an SI belt Personal Factors Other Personal Factors That May Effect Fibroids Therapy/Recovery PT-OP-F Manual Assessment Start: 05/06/21 15:03 Freq: Status: Active Protocol: Document 05/06/21 07:30 AMB (Rec: 05/06/21 15:35 AMB [email or web address]) Manual Assessments Other Manual Assessments Other Manual Assessments Pain with deep palpation over R SI joint, no pain wiht palpation over musculature (QL ,piriformis, paraspinals). PT-OP-J Posture/Palpation/Skin Start: 05/06/21 15:03 Freq: Status: Active Protocol: Document 05/06/21 07:30 AMB (Rec: 05/06/21 15:37 AMB [email or web address]) Posture Evaluation Comments Posture Comments Pt stands with slight lumbar extension and posterior pelvic tilt PT-OP-K Range of Motion Start: 05/06/21 15:03 Freq: Status: Active Protocol: Document 05/06/21 07:30 AMB (Rec: 05/06/21 15:35 AMB [email or web address]) Lumbar Spine Range of Motion Lumbar Spine Active Degrees Testing Position Standing Flexion 50 Extension 0 Lateral Flexion Left 25 Lateral Flexion Right 25 Comments pain with extension PT-OP-T Assessment and Plan Start: 05/06/21 15:03 Freq: Status: Active Protocol: Document 05/06/21 07:30 AMB (Rec: 05/06/21 15:35 AMB [email or web address]) Physical Therapy Assessment Evaluation Complexity Number of Personal Factors/Comorbidities 1-2 Number of Body Systems Impaired 3 Clinical Presentation at Evaluation Evolving Impairments Impairments Activity Tolerance,Functional Activities,Pain,Posture,ROM Goals Two Impairment HEP Short Term Goal (STG) Bonilla will be independent and consistent with a HEP for her SI dysfunction and to improve her core stability. STG Duration 8 weeks One Impairment Pain Short Term Goal (STG) Bonilla will stand for 4 hours without increasing her R SI pain. STG Duration 4 weeks Gutter Mouth Cutter Goal (LTG) Bonilla will stand at work without back or SI pain throughout her shift. LTG Duration 8 weeks Assessment Summary Assessment Bonilla attends physical therapy with R SI pain and R anteriorly rotated innominate which responded well to manual therapy today. Further treatment/evaluation was limited due to patient getting to appointment late and needing court interpreter. Frequency of PT will be limited due to pt needing to take ferry to get to PT appointments. She would benefit from further manual therapy and core stabilization training for her SI dysfunction. Physical Therapy Plan Frequency and Duration Frequency of Treatment 1x/Week Duration of Treatment 10 weeks Plan of Care Start Date 05/06/21 Plan of Care End Date 07/15/21 Therapeutic Interventions Therapeutic Interventions Aquatic Therapy,Home Exercise Program,Joint Mobilizations, Manual Therapy,Neuromuscular Re-education,Self-Care/Home Management,Therapeutic Activities,Therapeutic Exercises Modalities Cold Pack/Ice Massage,Electric Stimulation,Hot Packs Next Visit Focus/Plan Next Note Type Treatment Note Next Visit Plan Reassess MET for R anterior rotated innominate, progress stabilization in quadruped
--- NOTE | 2021-06-04 11:54 | PT.OPDS ---
Current Diagnoses Intramural leiomyoma of uterus (05/06/21) Low back pain (05/06/21) Other specified related conditions, unspecified trimester (05/06/21) Pelvic and perineal pain (05/06/21) Encounter for supervision of normal , unspecified, unspecified trimester (05/06/21) Visit Care Team Role Provider Type Marlon Sim DO Family Provider Physician Primary Care Provider Specialty: Family Practice Address: [address] [place] [address] Email: [email or web address] Helen Stone MD Attending Provider Physician Referring Provider Specialty: Gynecology [employer] GR[employer] MACHINE Obstetrics Address: [address] [place] [id number] Email: [email or web address] Visit Number Visit Number 1 Discharge Summary PT-OP-B Current Condition Start: 05/06/21 15:03 Freq: Status: Active Protocol: Document 05/06/21 07:30 AMB (Rec: 05/06/21 15:35 AMB [email or web address]) Current Condition History of Current Condition Onset Date 1 month ago Current Complaints right sided low back pain with standing History of Current Condition Bonilla attends physical therapy with her . 22 weeks . Comoran sign language interpreter is on phone during session. Bonilla's provides some of the history. She fell, sitting down hard on her butt about a month ago and has had pain in standing since. She works at the [employer] and stands for about 6 hours a shift. After about 3 hours she has increased pain. She points to her R SI when asked where her pain is. She also has bilateral hand numbness but that is not on her referral so she was directed to return to her PCP for that. Prior Functional Status Baseline Function- ADL's Independent Baseline Function- Mobility Independent Current Functional Impairments (Reported) Functional Limitations- ADL's Difficulty/pain with extended standing, does report she has an SI belt Personal Factors Other Personal Factors That May Effect Fibroids Therapy/Recovery PT-OP-F Manual Assessment Start: 05/06/21 15:03 Freq: Status: Active Protocol: Document 05/06/21 07:30 AMB (Rec: 05/06/21 15:35 AMB [email or web address]) Manual Assessments Other Manual Assessments Other Manual Assessments Pain with deep palpation over R SI joint, no pain wiht palpation over musculature (QL ,piriformis, paraspinals). PT-OP-J Posture/Palpation/Skin Start: 05/06/21 15:03 Freq: Status: Active Protocol: Document 05/06/21 07:30 AMB (Rec: 05/06/21 15:37 AMB [email or web address]) Posture Evaluation Comments Posture Comments Pt stands with slight lumbar extension and posterior pelvic tilt PT-OP-K Range of Motion Start: 05/06/21 15:03 Freq: Status: Active Protocol: Document 05/06/21 07:30 AMB (Rec: 05/06/21 15:35 AMB [email or web address]) Lumbar Spine Range of Motion Lumbar Spine Active Degrees Testing Position Standing Flexion 50 Extension 0 Lateral Flexion Left 25 Lateral Flexion Right 25 Comments pain with extension PT-OP-T Assessment and Plan Start: 05/06/21 15:03 Freq: Status: Active Protocol: Document 06/04/21 11:53 AMB (Rec: 06/04/21 11:54 AMB [email or web address]) Physical Therapy Plan Discharge Physical Therapy Discharge Reasons Patient Request Discharge Comments Pt's called to say that getting to PT from the [facility] is just too much and requesting discharge.
== END 2021-06-06 07:56 | disposition home or self-care (01) ==
LOC: PHYS 07:33
PROVIDERS: Family Provider Family Medicine; PCP Family Medicine; Referring Provider Obstetrics & Gynecology; Visit Provider Obstetrics & Gynecology
DX: O26.899 Other specified pregnancy related conditions, unspecified trimester (principal); R10.2 Pelvic and perineal pain; D25.1 Intramural leiomyoma of uterus; M54.5 Low back pain
CPT/HCPCS: 97162

== ENCOUNTER → 2021-05-06 10:00 | Outpatient (CLI) | payer OTHER, SELFPAY ==
--- NOTE | 2021-05-06 10:01 | DI.US.S_ITS ---
PROCEDURE: US OB >= 14 WEEKS FETUS INDICATIONS: ANATOMY SCAN OUTSIDE/PRIOR DATING DATA: Last menstrual period (LMP): November 29, 2020 . LMP-based estimated date of delivery (EMILI): September 05, 2021. First dating scan (date and location): January 31, 2021 . Estimated date of delivery (EMILI) from first dating scan: September 07, 2021 . TECHNIQUE: Real-time scanning was performed of the fetus, with image documentation and biometric measurements. Endovaginal scanning: Not performed COMPARISON: [facility], , US OB >= 14 WEEKS FETUS, 03/29/2021, 9:39. FINDINGS: General: A single living intrauterine gestation is present. Presentation: Variable. Placenta: Placental position is posterior , without previa. Amniotic fluid index: 14.4 cm, normal range is 5-24 cm. heart rate: 145 beats per minute. Maternal cervical canal: 5 cm long. Normal lower limit is 2.5 cm. There are 2 intrauterine fibroids identified. Anteriorly the 1st fibroid measures 6.3 x 5.8 x 6.9 cm, previously 5.2 x 4.7 x 6.5 cm , and and posteriorly the 2nd fibroid measures 4.5 x 4.8 x 4.7, previously 4.5 x 4.8 x 4.7 cm. biometrics: Biparietal diameter: 5.1 cm, correlating with 21 a weeks and 4 days Head circumference: 19.9 cm, correlating with 22 weeks and 1 day Abdominal circumference: 16.8 cm, correlating with 21 weeks and 6 days Femur length: 3.9 cm, correlating with 22 weeks and 4 days Estimated gestational age from initial scan: 22 weeks and 2 days. Composite gestational age from present scan: 22 weeks and 0 days Estimated weight and percentile: 470 g which [address] the fetus within the 35th percentile based off gestational age. Measurement variability for biometric dating: +/- 7 days from 14 weeks to 15 weeks 6 days gestation, +/- 10 days from 16 weeks to 21 weeks 6 days gestation, +/- 2 weeks from 22 weeks to 27 weeks 6 days gestation, +/- 3 weeks for 28 weeks gestation or later. weight reference: 4500 g or EFW >90/95% is considered macrosomia or large for gestational age. EFW <10% is small for gestational age. EFW 5% or less is considered intra-uterine growth restriction. Anatomic survey: Neuro: Ventricles are non-dilated at less than 10 mm. Cisterna magna is normal at 3-11 mm. Cerebellum is normal in size and morphology. Nuchal skin fold: Normal at less than 6 mm between 14-21 weeks gestational age. Face: Nose and lips, facial profile are normal. Spine: No evidence for spina bifida. Heart: 4-chambered heart is present, with normal ventricular outflow tracts. Diaphragm: Diaphragm is intact. Stomach: Left-sided stomach is present. Kidneys: No hydronephrosis. Normal is less than 5 mm in 2nd trimester, less than 7 mm in 3rd trimester. Cord: 3-vessel cord has orthotopic insertion. Bladder: Normal in size. Extremities: All 4 extremities identified. IMPRESSION: 1. Single living intrauterine gestation with estimated sonographic gestational age of approximately 22 weeks and 0 days with estimated dated delivery of approximately September 07, 2021. Estimated weight of approximately 470 g which places the fetus within the 35th percentile based off gestational age 2. Redemonstration of 2 uterine fibroids which is not demonstrated significant change in size. 3. Otherwise, normal second-trimester anatomic screening survey. Dictated by: Daniel Soto M.D. on 05/06/2021 at 12:47 Approved by: Daniel Soto M.D. on 05/06/2021 at 13:38
== END ==
PROVIDERS: Family Provider Family Medicine; PCP Family Medicine; Referring Provider Obstetrics & Gynecology; Visit Provider Obstetrics & Gynecology
DX: Z36.89 Encounter for other specified antenatal screening (principal); O34.12 Maternal care for benign tumor of corpus uteri, second trimester; D25.9 Leiomyoma of uterus, unspecified; Z3A.22 22 weeks gestation of pregnancy
CPT/HCPCS: 76811

== ENCOUNTER → 2021-06-11 13:20 | Outpatient (CLI) | payer OTHER, SELFPAY ==
[2021-06-11 19:36] LABS: Hematocrit 29.7 % (36-46); Hemoglobin 9.9 g/dL (12.0-16.0)
[2021-06-11 19:38] LABS: GTT (PREG) 1 Hour PP 50gm Dose 173 mg/dL (76-139)
== END ==
PROVIDERS: Family Provider Family Medicine; PCP Family Medicine; Referring Provider Obstetrics & Gynecology; Visit Provider Obstetrics & Gynecology
DX: Z34.02 Encounter for supervision of normal first pregnancy, second trimester (principal); Z3A.26 26 weeks gestation of pregnancy
CPT/HCPCS: 82950; 85014; 85018

== ENCOUNTER → 2021-06-14 06:57 | Outpatient (CLI) | payer OTHER, SELFPAY ==
[2021-06-14 08:38] LABS: Glucose Fasting Gestational 100 mg/dL (76-95)
[2021-06-14 09:11] LABS: Glucose 1 Hour Gest 222 mg/dL (76-180)
[2021-06-14 10:17] LABS: Glucose Tol Interp,Gestational INTERPRETATION
[2021-06-14 10:19] LABS: Glucose 2 Hour Gest 243 mg/dL (76-155)
[2021-06-14 12:10] LABS: Glucose 3 Hour Gest 158 mg/dL (76-140)
--- NOTE | 2021-06-14 16:17 | DI.RAD.S_ITS ---
PROCEDURE: XR ANKLE LT MIN 3V INDICATIONS: swollen ankle TECHNIQUE: 3 views of the ankle were acquired. COMPARISON: None. FINDINGS: Bones: No fractures or dislocations. Ankle mortise is normally aligned. No suspicious bony lesions. Soft tissues: No tibiotalar joint effusion. Achilles tendon appears normal. IMPRESSION: No visualized acute fracture or dislocation. However, if clinical concern and/or pain persist, short interval imaging followup in 7-10 days is recommended, as occult injury cannot be definitively excluded. Dictated by: Anabell Reyes M.D. on 06/14/2021 at 16:51 Approved by: Anabell Reyes M.D. on 06/14/2021 at 16:52
== END ==
PROVIDERS: Family Provider Family Medicine; PCP Family Medicine; Referring Provider Obstetrics & Gynecology; Visit Provider Obstetrics & Gynecology
DX: R73.09 Other abnormal glucose (principal); M25.572 Pain in left ankle and joints of left foot
CPT/HCPCS: 36415; 73610; 82951; 82952

== ENCOUNTER → 2021-06-25 15:31 | Outpatient (CLI) | payer OTHER, SELFPAY ==
--- NOTE | 2021-06-25 16:56 | DIAB.GDA ---
Initial Gestational Diabetes Assessment Name: Bonilla Sherman V Date: 06/25/21 Time: 330-445p Dx: Gestational Diabetes Provider: Bertha EMILI: 09/05/21 G 1 P 0 Weeks: 29w 4d PMH: carpal tunnel, contracted pelvis, short stature, AMA, painful menstrual periods, fibroid uterine Bonilla presents today with Urdu speaking . Today we used a telephonic [employer] interpreter and culturally appropriate handouts for reinforcement. Denies FH of DM. Reports feeling uncomfortable d/t bloat. Reports reducing carb intake. States she is very worried about blood sugars. 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 Lives on [facility]. Diet Recall: 3-5a: egg, toast, coffee with powdered milk and sweetened mix 6a: 1/3c brown rice, veg, egg 11a-12p: 1c noodles, half grapefruit, lettuce, egg, meat snack: banana and pear 5-7p: 1/2c brown rice, lettuce, chicken snack: nothing or cucumber Beverages: water (unsure amt), coffee x 1c Anthropometrics Ht: 4'11 Wt: 145# Prepregnancy wt: 133# reported Wt changes: +12# Physical Activity: Limited recently by sprained ankle over the last week. Feeling better and can implement walking. Per , usually goes on daily walks. Reports activity with job as well. No program currently. Self-Monitoring Blood Glucose: Checking fasting and 2 hour pc. 1 elevated pc this week. All fastings elevated. This may indicate need for medication management. Discussed trying BG checks at 1 hour as well. Date Pre Post Pre Post Pre Post HS 06/19 102 75 106 119 9/2 97 90 97 120 /3 111 99 93 112 9/4 96 94 109 124 9/5 97 96 95 109 9/6 94 106 114 130 9/7 103 112 Medications: PNV, iron, pantoprazole, ondansetron prn Interventions: This participant was very receptive. Provided appropriate educational handouts. Discussed the following topics: GDM pathophysiology and impact of hyperglycemia on mom and baby Plate Method, meal timing, carb counting, pairing macronutrients and spreading out CHO for better BG management Blood glucose goals (FBG: <95 and 1 hour <140 mg/dL), 2 hour <120 mg/dL; importance of checking 4x per day (FBG and pc) Impact of macronutrients on blood glucose Recommended servings for carbohydrates at meals and snacks (B: 30g ; L&D: 45g ; snack: 15-30g) Brainstormed appropriate meal plan based on her food preferences Role of physical activity and following provider guidelines for safety Fluid recommendations Potential medication needs due to hormones impacting insulin resistance Goals: Try to eat q 3-4 hours Pair carb snacks with protein Try checking BG 1 hour pc Stay hydrated Try to walk safely Follow-up: Original plan was to call pt on Thursday and if readings continue above target in the morning, recommend meds. On second glance, her blood sugars have been elevated since monitoring started. She would likely benefit from starting DM medications. Will call provider and pt to follow-up on a plan. Yuli Siddiqi RDN, [facility] Certified Diabetes Care and State Auditor T: [phone] F: [phone] [email or web address] Thank you for this referral
== END ==
PROVIDERS: Family Provider Family Medicine; PCP Family Medicine; Referring Provider Obstetrics & Gynecology; Visit Provider Obstetrics & Gynecology
DX: O24.419 Gestational diabetes mellitus in pregnancy, unspecified control (principal); Z3A.29 29 weeks gestation of pregnancy; Z71.3 Dietary counseling and surveillance
CPT/HCPCS: G0108

== ENCOUNTER → 2021-07-11 15:37 | Outpatient (CLI) | payer OTHER, SELFPAY ==
--- NOTE | 2021-07-11 16:12 | DIAB.GDFU ---
Follow-up Gestational Diabetes Assessment Name: Bonilla Sherman V Date: 07/11/21 Time: 340-410p Dx: Gestational Diabetes Provider: Bertha EMILI: 09[birth year]21 G 1 P 0 PMH: carpal tunnel, contracted pelvis, short stature, AMA, painful menstrual periods, fibroid uterine Bonilla presents today with . Today we used a telephonic Portuguese motor vehicle parts interpreter and at one point [employer] rubber tire and tubes supervisor. Very brief appointment due to late arrival r/t transportation issues. Has started NPH. Preloading 11u as directed by the RN, which is concerned about. This does not seem necessary given recent blood sugars, but encouraged them to discuss further with provider. Bonilla endorses stress with working hours, fatigue, and limited sleep. States she wakes to urinate 3-4 x per night and cannot return to sleep. Recent elevated glucoseof 102 mg/dL in the morning may have been related to lack of sleep. Eating 3-4 x per day, 2L water daily. We did not have time to discuss details. Will call them tomorrow to set up a telehealth visit. Physical Activity: Not discussed Last visit- Limited recently by sprained ankle over the last week. Feeling better and can implement walking. Per , usually goes on daily walks. Reports activity with job as well. No program currently. Self-Monitoring Blood Glucose: Checking fasting and 2 hour pc. 12/23 elevated FBG, but they have improved. Some on the lower side (77 mg/dL), denies hypo symptoms. All pc readings in range. Date Pre Post Pre Post Pre Post HS 07/04 100 90 100 117 07/05 99 91 104 07/06 102 86 113 07/07 95 84 104 99 07/09 77 94 120 07/10 80 97 100 07/11 79 96 Medications: NPH 11u HS; PNV, iron, pantoprazole, ondansetron prn Interventions: This participant was very receptive. Provided appropriate educational handouts. Discussed the following topics: BG goals and trends Impact of sleep on BG s/s of hypoglycemia and tx Seems appropriate to inject the 10u instead of preloading an extra unit, if provider agrees. Asked them to discuss further at today's appt Goals: (not assessed today given time constraints) Try to eat q 3-4 hours Pair carb snacks with protein Try checking BG 1 hour pc Stay hydrated Try to walk safely Follow-up: Will call Bonilla tomorrow to schedule a telehealth visit. Yuli Siddiqi RDN, [facility] Certified Diabetes Care and Nail Cutter T: [phone] F: [phone]
== END ==
PROVIDERS: Family Provider Family Medicine; PCP Family Medicine; Referring Provider Obstetrics & Gynecology; Visit Provider Obstetrics & Gynecology
DX: O24.414 Gestational diabetes mellitus in pregnancy, insulin controlled (principal); Z71.3 Dietary counseling and surveillance
CPT/HCPCS: G0108

== ENCOUNTER → 2021-07-11 17:13 | Outpatient (CLI) | payer OTHER, SELFPAY ==
[2021-07-12 21:14] LABS: HSV I/II IgM <0.91 Ratio (0.00-0.90)
== END ==
PROVIDERS: Family Provider Family Medicine; PCP Family Medicine; Referring Provider Obstetrics & Gynecology; Visit Provider Obstetrics & Gynecology
DX: N90.89 Other specified noninflammatory disorders of vulva and perineum (principal)
CPT/HCPCS: 36415; 86694; 86695; 86696

== ENCOUNTER 2021-07-11 17:15 | Observation (INO) | payer OTHER, SELFPAY ==
[2021-07-11] MEDS: NIFEdipine 10 MG CAPSULE PO ×3 (19:35→20:15)
[2021-07-11 21:43] LABS: Fetal Fibronectin Negative
== END 2021-07-11 20:30 | disposition home or self-care (01) ==
LOC: LABOR 17:17
PROVIDERS: Admitting Provider Obstetrics & Gynecology; Family Provider Family Medicine; PCP Family Medicine; Referring Provider Obstetrics & Gynecology; Visit Provider Obstetrics & Gynecology
DX: O47.02 False labor before 37 completed weeks of gestation, second trimester (principal); O09.513 Supervision of elderly primigravida, third trimester; Z3A.32 32 weeks gestation of pregnancy; N90.89 Other specified noninflammatory disorders of vulva and perineum
CPT/HCPCS: 36415; 59050; 82731; 86694; 86695; 86696; G0378; G0379

== ENCOUNTER 2021-07-17 16:44 | Outpatient (CLI) | payer OTHER, SELFPAY | END 2021-07-17 17:20 | disposition home or self-care (01) | LOC: OB 07-19 08:54 | PROVIDERS: Family Provider Family Medicine; PCP Family Medicine; Referring Provider Obstetrics & Gynecology; Visit Provider Obstetrics & Gynecology | DX: O24.414 Gestational diabetes mellitus in pregnancy, insulin controlled (principal); O09.513 Supervision of elderly primigravida, third trimester; Z3A.32 32 weeks gestation of pregnancy | CPT/HCPCS: 59025; G0378; G0379 ==

== ENCOUNTER 2021-07-25 14:23 | Outpatient (CLI) | payer OTHER, SELFPAY | END 2021-07-25 15:10 | disposition home or self-care (01) | LOC: OB 07-30 04:47 | PROVIDERS: Family Provider Family Medicine; PCP Family Medicine; Referring Provider Obstetrics & Gynecology; Visit Provider Obstetrics & Gynecology | DX: O24.113 Pre-existing type 2 diabetes mellitus, in pregnancy, third trimester (principal); O09.513 Supervision of elderly primigravida, third trimester; Z3A.34 34 weeks gestation of pregnancy; Z79.4 Long term (current) use of insulin | CPT/HCPCS: 59025; G0378; G0379 ==

== ENCOUNTER 2021-08-01 14:11 | Observation (INO) | payer OTHER, SELFPAY | END 2021-08-01 14:30 | disposition home or self-care (01) | PROVIDERS: Admitting Provider Obstetrics & Gynecology; Family Provider Family Medicine; PCP Family Medicine; Referring Provider Obstetrics & Gynecology; Visit Provider Obstetrics & Gynecology | CPT/HCPCS: G0378; G0379 ==

== ENCOUNTER → 2021-08-01 16:26 | Outpatient (CLI) | payer OTHER, SELFPAY ==
[2021-08-02 12:51] LABS: Strep Grp B PCR NEG for Grp B Strep
== END ==
PROVIDERS: Family Provider Family Medicine; PCP Family Medicine; Referring Provider Obstetrics & Gynecology; Visit Provider Obstetrics & Gynecology
DX: Z34.03 Encounter for supervision of normal first pregnancy, third trimester (principal); Z3A.35 35 weeks gestation of pregnancy
CPT/HCPCS: 87653

== ENCOUNTER 2021-08-01 16:49 | Outpatient (CLI) | payer OTHER, SELFPAY | END 2021-08-01 17:17 | disposition home or self-care (01) | LOC: OB 08-06 14:35 | PROVIDERS: Family Provider Family Medicine; PCP Family Medicine; Referring Provider Obstetrics & Gynecology; Visit Provider Obstetrics & Gynecology | DX: O24.414 Gestational diabetes mellitus in pregnancy, insulin controlled (principal); O09.513 Supervision of elderly primigravida, third trimester; Z3A.35 35 weeks gestation of pregnancy; Z34.03 Encounter for supervision of normal first pregnancy, third trimester | CPT/HCPCS: 59025; 87653; G0378; G0379 ==

== ENCOUNTER → 2021-08-08 10:52 | Outpatient (CLI) | payer OTHER, SELFPAY ==
--- NOTE | 2021-08-08 10:53 | DI.US.S_ITS ---
PROCEDURE: US OB LIMITED INDICATIONS: TAMMY OUTSIDE/PRIOR DATING DATA: Last menstrual period (LMP): 09/28/2021 . LMP-based estimated date of delivery (EMILI): 09/05/2021 . First dating scan (date and location): 01/21/2021 . Estimated date of delivery (EMILI) from first dating scan: 09/07/2021 . TECHNIQUE: Real-time scanning was performed of the fetus, with image documentation and biometric measurements. Endovaginal scanning: None COMPARISON: None. FINDINGS: General: A single living intrauterine gestation is present. Presentation: Breech. Placenta: Placental position is right fundal , without previa. Amniotic fluid index: 11.9 cm, normal range is 5-24 cm. heart rate: 131 beats per minute. Maternal cervical canal: Nonvisualized biometrics: No performed Estimated gestational age from initial scan: 35 week 5 day IMPRESSION: Single live intrauterine consistent with 35 week 5 day gestation. Amniotic fluid index 11.9 cm. Approved by: Regino Rudolph M.D. on 08/08/2021 at 11:55
== END ==
PROVIDERS: Family Provider Family Medicine; PCP Family Medicine; Referring Provider Obstetrics & Gynecology; Visit Provider Obstetrics & Gynecology
DX: Z34.03 Encounter for supervision of normal first pregnancy, third trimester (principal); Z3A.35 35 weeks gestation of pregnancy
CPT/HCPCS: 76815

== ENCOUNTER 2021-08-08 10:54 | Outpatient (CLI) | payer OTHER, SELFPAY | END 2021-08-08 12:58 | disposition home or self-care (01) | LOC: LABOR 12:45 → OB 08-12 09:19 | PROVIDERS: Family Provider Family Medicine; PCP Family Medicine; Referring Provider Obstetrics & Gynecology; Visit Provider Obstetrics & Gynecology | DX: O24.113 Pre-existing type 2 diabetes mellitus, in pregnancy, third trimester (principal); Z3A.35 35 weeks gestation of pregnancy; Z79.4 Long term (current) use of insulin | CPT/HCPCS: 59025; 76815; G0378; G0379 ==

== ENCOUNTER 2021-08-12 15:10 | Inpatient (IN) | payer OTHER, SELFPAY ==
--- NOTE | 2021-08-12 | PATH_ITS ---
[facility] Accession Number: [id number] . 01 Material submitted: . UTERINE - UTERINE FIBROID . 01 Clinical history: . OBS . 02 Diagnosis: A. 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 No evidence of significant atypia or malignancy. . COMMENT: The smaller smooth muscle neoplasm consists of mature smooth muscle cells demonstrating mild to moderate cellularity with patchy areas of hemorrhage and focal cystic degeneration. Some hemorrhagic areas are surrounded by granulation-type tissue, where the neoplastic cells may demonstrate some mitotic activity, and consist of what appears to be infarct-type necrosis. Other areas demonstrate abrupt transition between non-viable and viable neoplastic cells. Given the absence of significant nuclear atypia (both within the ghost and viable cells), and lack of significant mitotic activity, these infarcts likely represent early infarcts (rather than coagulative-type necrosis). 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 The larger smooth muscle neoplasm (10 cm) is largely necrotic and hyalinized. Most importantly there is no evidence of significant atypia or malignancy. [facility] 08/20/2021 0341 Local . 02 Electronically signed: . Josy Reilly MD, Pathologist NPI- [id number] . 01 Gross description: . The specimen is received in formalin, labeled uterine fibroid and consists of two thao-pink leiomyomata weighing 219 grams in aggregate and measuring 4.5 x 3.5 x 2.0 cm and 10.0 x 8.0 x 5.5 cm. Sectioning reveals thao-white whorled cut surfaces with focal areas of hemorrhage and cystic degeneration. The larger leiomyoma displays approximately 75% necrotic cut surfaces. Oven Dauber sections in cassettes A1-A8. A9-A13: Additional logistics service representative sections of leiomyomata. ([id number]) ([id number]) /MRV 08/20/2021 0232 Local . 02 Pathologist provided ICD-10: D25.1 . 02 CPT . 217599 Performed at: 01 [facility] [address] [id number] MD Jamey Velasco MD Phone: [phone] Performed at: 02 [facility] [id number] [place] [id number] MD Amberly Diaz MD Phone: [phone]
[2021-08-12 15:36] VITALS: BP 124/78
[2021-08-12] MEDS: LACTATED RINGERS 1,000 ML 1000 ML IV ×2 (15:50→17:15)
[2021-08-12 16:01] LABS: Add Manual Diff / Slide Review NO; Basophils Absolute Auto 0 /uL (0-100); Basophils Percent Auto 0.3 % (0-2); Eosinophils Absolute Auto 0 /uL (0-450); Eosinophils Percent Auto 0.5 % (2-4); Hematocrit 31.9 % (36-46); Hemoglobin 10.8 g/dL (12.0-16.0); Lymphocytes Absolute Auto 1800 /uL (1100-4500); Lymphocytes Percent Auto 18.9 % (25-40); Mean Corpuscular Hemoglobin 28.3 PG (26-34); Mean Corpuscular Volume 83.2 fL (80-100); Monocytes Absolute Auto 800 /uL (0-900); Monocytes Percent Auto 8.3 % (3-14); Neutrophils Absolute Auto 6800 /uL (1500-7000); Platelet Count 240 X10^3/uL (150-400); Red Blood Cell Count 3.83 X10^6/uL (4.0-5.2); Red Cell Distribution Width 15.5 % (11.6-14.8); White Blood Cell Count 9.5 X10^3/uL (4.5-11.0)
[2021-08-12 16:35] LABS: COVID19 -Nasal RAPID Negative (Negative)
--- NOTE | 2021-08-12 16:58 | SUR.OPER ---
Armenian phone site interpreter Chloe ID#[id number] used for Pre-op interview with first Hai Stevens present then Dr. Stone. Surgical consent also obtained during this time with Dr. Stone, see surgical consent paperwork. Patient removed her 2 earrings and 2 bands from her left ring finger and given to her Jr.
--- NOTE | 2021-08-12 17:38 | SUR.OPER ---
Supine on Padded OR bed, head on pillow, safety belt at thigh, arms secured on padded arm boards at <90 degrees abduction. Bump under right buttock. Legs uncrossed with pillow under knees, gel pad to heels, tape over blanket to lower legs.
--- NOTE | 2021-08-12 17:52 | PM.OBHP.1 ---
OB HPI Date/Time Date of admission: 08/12/21 Date Patient Seen: 08/12/21 Time Patient Seen: 17:52 History of Present Condition Chief complaint: OBS : 1 Para: 0 Estimated Date of Delivery: 09/05/21 Estimated Gestational Age (weeks): 36+4 Narrative: Bonilla Sherman is a 45 year old female 1 para 0 at 36-,4/7 weeks gestation who presented with spontaneous rupture of membranes. Baby is breech. She has a contracted pelvis and was scheduled for a primary section at 39 weeks. Indications Indication for induction OB: gestational diabetes (On insulin) Operative indications ( section): malpresentation (Breech) History of Present care: good care, initiated at week # (8), number of visits (14) and pounds weight gain (12) Dating criteria: LMP confirmed by 1st trimester US Ultrasounds: normal 1st trimester US and normal mid trimester US Obstetrical complications: gestational diabetes (on insulin) Medical complications: none Preadmission Labs Blood type: B (+) positive -: Antibody screen: negative, GBS status: negative, HBsAG: negative, HIV: negative and RPR/VDLR: negative -: Chlamydia screen: not detected and Gonorrhea screen: not detected -: Rubella: immune and Varicella: immune HCT: 31.9 HCAB: negative PAP: Normal (yeast) Cell-free DNA: normal male Urine: Negative 1 hr GTT: 173 3 hr GTT: 1 hr (222), 2 hr (243) and 3 hr (243) Fasting blood glucose: 100 Evaluation Evaluation Baseline heart rate: 135 Variability: Moderate (11-25) monitor accelerations: Present Monitor Decelerations: Absent Contraction Frequency (minutes): 8 Uterine Contraction Intensity: Mild Status: Category l [facility] Medical History Accident AMA (advanced maternal age) primigravida 35+ Carpal tunnel syndrome Chronic headaches Fibroid, uterine History of indigestion Neck pain Painful menstrual periods (~2017) Surgical History S/P laparoscopy (~09/03/20) S/P wisdom tooth extraction (~10/2019) Family History Mother No problems noted. Father CVA (cerebral vascular accident) Grandmother No problems noted. Grandfather No problems noted. Grandmother No problems noted. Grandfather No problems noted. Sister Joint impingement affecting osseous tissue Sister No problems noted. Brother No problems noted. Social History marital status: number of children: 0 household members: spouse lives independently: Yes caregiver/support person: No pets and animals: Yes (X 1 dog and X 1 Cat (indoor/outdoor cat) : discussed ) occupational status: employed current occupational exposures/hazards: Yes aly/faith: Islam special aly needs: No Smoking Status: Never smoker second hand exposure: No alcohol intake: former substance use type: does not use Meds Home Medications and Allergies Home Medications Medication Instructions Recorded Confirmed Type pantoprazole 40 mg tablet,delayed 40 mg PO DAILY #30 tab 02/28/21 08/12/21 Rx release (Protonix) blood-glucose meter #1 ea 06/14/21 08/12/21 Rx lancets 30 gauge and blood glucose #100 ea 06/14/21 08/12/21 Rx strips combo pack insulin NPH isoph U-100 human 100 10 unit SUBCUT .qhs #3 ml 06/27/21 08/12/21 Rx unit/mL (3 mL) subcutaneous pen valacyclovir 500 mg tablet 500 mg PO BID #10 tab 07/12/21 08/12/21 Rx (Valtrex) Allergies Allergy/AdvReac Type Severity Reaction Status Date / Time No Known Drug Allergies Allergy Verified 08/01/21 15:18 Exam Vital Signs (past 8 hours): - 08/12/21 15:36 Blood Pressure 124/78 Narrative Exam Narrative: Generally: A well-developed, well-nourished female, no acute distress Lungs: Clear to auscultation bilaterally Cardiovascular: Regular rate and rhythm Fundal height: 40 cm Estimated weight: 7 lb Extremities: 1+ edema, 1+ DTRs Objective Labs Result Diagrams: 08/12/21 15:50 Labs: Laboratory Results - last 24 hr 08/12/21 08/12/21 08/12/21 15:30 15:50 15:50 WBC 9.5 RBC 3.83 L Hgb 10.8 L Hct 31.9 L MCV 83.2 MCH 28.3 MCHC 34.0 RDW 15.5 H Plt Count 240 Neut % (Auto) 72.0 Lymph % (Auto) 18.9 L [place] % (Auto) 8.3 Eos % (Auto) 0.5 L Baso % (Auto) 0.3 Neut # (Auto) 6800 Lymph # (Auto) 1800 [place] # (Auto) 800 Eos # (Auto) 0 Baso # (Auto) 0 SARS-CoV-2 (PCR) Negative Blood Type B Positive Antibody Screen Negative Crossmatch See Detail Assessment and Plan Assessment and Plan Assessment and Plan narrative: Assessment: 45-year-old 1 para 0 at 36-,4/7 weeks gestation with spontaneous rupture of membranes, breech presentation, short stature, contracted pelvis, and gestational diabetes requiring insulin. Fibroid uterus Plan: Primary section with possible removal of fibroid The risks, benefits, and alternatives to the procedure were explained to the patient. The risks including bleeding, infection, injury to the bowel, bladder, or ureters. She understands these risks and agrees to proceed. A full par Q was held and consent form was signed. The consent form was explained to the patient with assistance from an egg factory worker. Time Spent with Patient Total time spent with greater than 50% in coordination of care (as documented) at patient's floor/unit and/or counseling patient:: 25 - 35 minutes
--- NOTE | 2021-08-12 18:04 | PM.PREOP ---
Pre-operative Note COVID-19 COVID-19 status: Negative Result date/Date tested (Pos, Neg/Pending): 08/12/21 Interval Note History & Physical reviewed/Exam performed by Physician: Yes Changes to H&P: No H&P completed within 30 days and has changed as indicated here:: 08/12/21
[2021-08-12] MEDS: CEFAZOLIN 1 GM VIAL 2 GM IV (18:10)
--- NOTE | 2021-08-12 19:06 | SUR.OPER ---
viable male delivered at 1906. cord blood and placenta to ob with cristal.
[2021-08-12] MEDS: SODIUM CHLORIDE 0.9% 30 ML, VASOPRESSIN 20 UNIT INJ (19:26)
[2021-08-12] MEDS: ACETAMINOPHEN IV 1,000 MG/100 ML VIAL 400 MG IV (19:28)
[2021-08-12] MEDS: MEPERIDINE 50 MG/ML INJ 12.5 MG IV ×2 (19:36→20:12)
[2021-08-12] MEDS: LACTATED RINGERS 1,000 ML 100 ML IV (19:42)
[2021-08-12] MEDS: TRIAMCINOLONE 40 MG/ML VIAL IM (19:59)
[2021-08-12 20:11] VITALS: BP 94/45; PULSE 87; RESP 26; TEMP 37.6; O2SAT 100
[2021-08-12 20:16] VITALS: BP 98/50; PULSE 84; RESP 19; O2SAT 100
[2021-08-12 20:20] VITALS: BP 102/54; PULSE 83; RESP 19; O2SAT 100
[2021-08-12 20:26] VITALS: BP 105/60; PULSE 84; RESP 19; O2SAT 100
--- NOTE | 2021-08-12 21:09 | PM.OBCS.1 ---
Operative Date/Time/Diagnoses Date of procedure: 08/12/21 Time of procedure: 21:10 Pre-op diagnosis: SROM at 36+4 wks gestation GDM on insulin Breech presentation Fibroid uterus Post-op diagnosis: same Procedure & Clinicians Procedure: Primary C section Myomectomy x 2 Same procedure as scheduled: Yes Indications: 36-4/7 weeks gestation Spontaneous rupture membranes Breech presentation Subserosal fibroids Surgeon: Helen Stone Click Yes if Unassisted: No Oil Dispatcher: Saul Johns Reason for Oil Dispatcher: The assistant basketball coach was responsible for retraction and fundal pressure with delivery of the baby. The assistant basketball coach completed the contralateral fascial closure. The assistant basketball coach was responsible for retraction clipping of suture both on entry and exit from the peritoneum. Anesthesia Type: Spinal Operative Notes Findings: Live male in the complete breech presentation Normal tubes and ovaries 8 cm right fundal subserosal fibroid 3 cm left lower uterine segment subserosal fibroid Closure Type: primary Specimen(s): cord blood, placenta and other (Two fibroids) Intraoperative meds administered: Acetaminophen, Duramorph, Ketorolac and Pitocin Applied: Catheter Estimated Blood Loss (mL): 250 Blood products transfused: none Procedure in detail: The patient was taken to the operating room where she was placed in the seated position. Spinal anesthesia was administered. She was then placed in the dorsal supine position with a leftward tilt. She was prepped and draped in the usual sterile fashion. A timeout was performed. After spinal analgesia was found to be adequate, a Pfannenstiel skin incision was made 2 fingerbreadths above the pubic symphysis and carried through to the underlying layer fascia. The fascia was nicked in the midline, and the incision extended bilaterally with the Henning scissors. The superior aspect of the fascial incision was grasped with a Binu clamps, elevated, and the underlying rectus muscles dissected off sharply and bluntly. Attention was then turned to the inferior aspect of this incision which in a similar fashion was grasped with a Binu clamps, elevated, and the underlying rectus muscles dissected off sharply and bluntly. The rectus muscles were in the midline. The peritoneum was identified, grasped between 2 hemostats, and entered sharply with the Metzenbaum scissors. This incision was extended superiorly and inferiorly with good visualization of the bladder. The bladder blade was inserted. The vesicouterine peritoneum was identified, grasped with the pickup, and entered sharply with the Metzenbaum scissors. This incision was extended bilaterally, and the bladder flap was created digitally. The bladder blade was reinserted. The lower uterine segment was incised in a transverse fashion with the scalpel. Upon entering the amniotic sac there was a large amount of clear amniotic fluid. The was delivered by total breech extraction. The nose and mouth were suctioned with bulb suction. The cord was double clamped and cut after 1 minute. The infant was handed off to waiting RN and RT. The placenta was delivered manually. The uterus was cleared of all clots and debris. The uterine incision was repaired with #1 chromic in a running interlocking fashion, and a second layer the same suture was used for an imbricating layer. Hemostasis was achieved. The tubes and ovaries were examined and were found to be normal. The left lower uterine segment subserosal fibroid was removed by using the Bovie to cut through the serosa. The fibroid was grasped with the single-tooth tenaculum. This was removed bluntly using the back end of a knife handle. The base of the fibroid was cauterized with the Bovie for hemostasis. This defect in the uterus was closed with 2 0 Vicryl with simple interrupted sutures. Hemostasis was achieved. The second fibroid was grasped with a single-tooth tenaculum. An injection of Pitressin 10 units in 30 cc was placed subserosal LEEP. Approximately 8 cc. The Bovie was used to cut through the serosa. The fibroid was grasped with a single-tooth tenaculum. The fibroid was bluntly dissected out digitally and also with the back end of a knife handle. The Bovie was used to extract the fibroid at the base. Hemostasis was achieved. The gutters were cleared of all clots and debris. The bladder flap was reapproximated using 2-0 Vicryl in a running fashion. The parietal peritoneum was closed using 2-0 Vicryl in a running fashion. The fascia was reapproximated using 0 Vicryl in a running fashion. Subcutaneous layer was copiously irrigated with warm normal saline. 5 simple interrupted sutures of 3-0 Vicryl were placed to reapproximate the subcutaneous layer. The skin was closed with 4-0 Monocryl in a subcuticular fashion. Steri-Strips were placed. An Aquacel dressing was placed. The uterus was expressed of a small amount of old blood. Sponge, lap, and instrument counts were correct x-2. The patient tolerated the procedure well, and was taken to PACU in stable condition. Complications: none [place] Baby 1: Gender: Male Presentation: breech Placental Delivery Description: Expressed Cord Vessel Description: 3 Vessels score (1 min): 8 score (5 min): 9 weight: 6 lb 4 oz Post-operative Condition: stable Disposition: PACU Aftercare: routine postop
[2021-08-12] MEDS: KETOROLAC 30 MG/ML VIAL IV (23:04)
[2021-08-12] MEDS: BUTORPHANOL 1 MG/ML VIAL 0.5 MG IV (23:05)
[2021-08-13] MEDS: KETOROLAC 30 MG/ML VIAL IV ×2 (05:01→11:19)
[2021-08-13 08:52] LABS: Hematocrit 27.7 % (36-46); Hemoglobin 9.5 g/dL (12.0-16.0)
[2021-08-13] MEDS: PRENATAL VIT,CALC/IRON/FOLIC 1 TABLET 1 TAB PO (09:25)
[2021-08-13] MEDS: DOCUSATE 100 MG CAPSULE 200 MG PO (09:25)
[2021-08-13 11:19] VITALS: TEMP 37.3
[2021-08-13 18:11] VITALS: TEMP 37.2
[2021-08-13] MEDS: IBUPROFEN 600 MG TABLET PO (18:11)
[2021-08-13 18:12] VITALS: TEMP 37.2
[2021-08-13] MEDS: ACETAMINOPHEN 325 MG TABLET 650 MG PO (18:12)
--- NOTE | 2021-08-13 18:44 | PM.OBPN.1 ---
Subjective - OB Subjective Patient comments: no complaints, pain well controlled and tolerating diet baby status: doing well and nursing well feeding status: breast and bottle feeding Date Patient Seen: 08/13/21 Time Patient Seen: 18:45 Exam Vital Signs (past 8 hours): - 08/13/21 11:19 08/13/21 18:11 08/13/21 18:12 Temperature 99.1 F 98.9 F 98.9 F Oxygen Delivery Method Room Air Narrative Exam Narrative: Generally: Patient lying in bed, no acute distress Fundus: Firm at U +1 Incision: Clean dry and intact with Aquacel dressing Extremities: 1+ edema, negative Homans Objective Labs Result Diagrams: 08/13/21 08:45 Labs: Laboratory Results - last 24 hr 08/13/21 08:45 Hgb 9.5 L Hct 27.7 L Assessment & Plan Plan day: 1 plan OB: routine postop care Time Spent With Patient Time: Total time spent is greater than 50% in coordination of care (as documented) at patient's floor/unit and/or counseling patient: Time with patient: 15-24 minutes
[2021-08-14] MEDS: ACETAMINOPHEN 325 MG TABLET 650 MG PO ×4 (01:09→21:18)
[2021-08-14] MEDS: IBUPROFEN 600 MG TABLET PO ×4 (01:10→21:18)
[2021-08-14 03:39] VITALS: BP 121/83; PULSE 95; RESP 16; TEMP 36.3
[2021-08-14] MEDS: PRENATAL VIT,CALC/IRON/FOLIC 1 TABLET 1 TAB PO (08:42)
[2021-08-14] MEDS: DOCUSATE 100 MG CAPSULE 200 MG PO (08:42)
--- NOTE | 2021-08-14 18:45 | PM.OBPN.1 ---
Subjective - OB Subjective Patient comments: no complaints, pain well controlled, tolerating diet and flatus present baby status: doing well, nursing well and bottle feeding well feeding status: breast and bottle feeding Date Patient Seen: 08/14/21 Time Patient Seen: 18:45 Exam Vital Signs (past 8 hours): Oxygen Delivery Method Room Air Narrative Exam Narrative: Generally: Patient lying in bed, no acute distress Fundus: Firm at U +1 Incision: Clean dry and intact with Aquacel dressing Extremities: 1+ edema Objective Labs Result Diagrams: 08/13/21 08:45 Assessment & Plan Plan day: 2 plan OB: routine postop care Time Spent With Patient Time: Total time spent is greater than 50% in coordination of care (as documented) at patient's floor/unit and/or counseling patient: Time with patient: 15-24 minutes
[2021-08-14] MEDS: LANOLIN OINT 7 GM 1 APPLIC TOP (21:04)
[2021-08-15] MEDS: IBUPROFEN 600 MG TABLET PO ×2 (03:43→09:39)
[2021-08-15] MEDS: ACETAMINOPHEN 325 MG TABLET 650 MG PO ×2 (03:43→09:38)
[2021-08-15] MEDS: DOCUSATE 100 MG CAPSULE 200 MG PO (09:38)
[2021-08-15] MEDS: PRENATAL VIT,CALC/IRON/FOLIC 1 TABLET 1 TAB PO (09:38)
--- NOTE | 2021-08-16 04:21 | PM.OBDS.1 ---
Discharge Providers Provider Date of admission: 08/12/21 15:10 Discharge Date: 08/15/21 Primary care physician: Marlon Sim DO Consults: 08/12/21 21:19 Consult to Automation And Controls Instructor Routine Comment: Discharge provider: Helen Stone MD Summary Hospital Course Date Patient Seen: 08/15/21 Time Patient Seen: 07:30 Diagnoses: 36-,4/7 weeks gestation Breech presentation Gestational diabetes requiring insulin Advanced maternal age Uterine fibroids Spontaneous rupture of membranes Hospital Course: Patient is a 45-year-old 1 para 1 who presented on August 12, 2021 with spontaneous rupture of membranes at 36-,4/7 weeks gestation. The baby was in the breech presentation. She underwent a primary low-transverse section and myomectomy x2 without complication, under spinal anesthesia. Her course was unremarkable and on postop day # 2 she was discharged home with pain well controlled. She was voiding without the catheter. She was tolerating a diet. She had had 1 small bowel movement. Her bleeding was tapering. Peripartum Data Delivery Method: Section Laceration Description: None Episiotomy description: None Procedures: Spinal anesthesia Primary low-transverse section Myomectomy x2 complications: none 1: Gender: Male Disposition of : home Status at Discharge Cognitive/behavioral status at discharge: oriented Functional status at discharge: independent ambulation Overall status at discharge: patient is progressing back to baseline Time Spent with Patient Time attestation: Total time spent providing and/or coordinating discharge services: Time spent: Less than 30 minutes Objective Labs Result Diagrams: 08/13/21 08:45 Labs: Laboratory Results - last 24 hr 08/12/21 15:50 Crossmatch See Detail Exam Vital Signs (past 8 hours): Oxygen Delivery Method Room Air Narrative Exam Narrative: Generally: Patient lying in bed, no acute distress Fundus: Firm at U +1 Incision: Clean dry and intact with Aquacel dressing Extremities: 1+ edema, negative Homans Discharge Plan Discharge Plan Patient Disposition: Home Provider Discharge Comment: Call with fever, chills, redness or drainage around the incision, or bleeding vaginally more than a pad in an hour Ibuprofen 600 mg every 6 hours as needed Tylenol 650 mg every 6 hours as needed Discharge orders & Medications Prescriptions: New tramadol 50 mg tablet 50 mg PO Q4H PRN (Reason: pain) Qty: 20 RF: 0 ibuprofen 600 mg tablet 600 mg PO Q6H PRN (Reason: pain or cramping) Qty: 30 RF: 2 docusate sodium [Colace] 100 mg capsule 200 mg PO DAILY Qty: 30 RF: 0 Discontinued insulin NPH isoph U-100 human 100 unit/mL (3 mL) insulin pen 10 unit SUBCUT .qhs Qty: 3 RF: 2 valacyclovir [Valtrex] 500 mg tablet 500 mg PO BID Qty: 10 RF: 0 pantoprazole [Protonix] 40 mg tablet,delayed release (DR/EC) 40 mg PO DAILY Qty: 30 RF: 2 No Action (DME) blood-glucose meter Misc See Rx Instructions .MEDSUPPLY Qty: 1 RF: 0 (DME) lancets-blood glucose strips 30 gauge combo pack See Rx Instructions .MEDSUPPLY Qty: 100 RF: 2 Follow up/Referrals: Helen Stone MD [Physician] - 2 Weeks (Follow up appointment on August at 1:45pm with for aquacel removal.) Diet/Activity/Treatments Diet: Regular Activity: No heavy lifting. Nothing more than baby or gallon of milk Skin/Wound/Dressing Care Report to your healthcare provider any signs of infection, such as:: chills, fever, increased pain, unusual drainage and unusual redness Dressing: Do not remove. Will instruct how to remove at 1 week post op Visit Report/Discharge Packet Instructions: DI for , DI for Prescription Opioid Use Stand Alone Forms: Discharge: Care Discharge Data Primary Care Provider: Marlon Sim
== END 2021-08-15 09:56 | disposition home or self-care (01) | DRG 788 ==
PROVIDERS: Admitting Provider Obstetrics & Gynecology; Family Provider Family Medicine; PCP Family Medicine; Referring Provider Obstetrics & Gynecology; Visit Provider Obstetrics & Gynecology
PROC: 10D00Z1 Extraction of Products of Conception, Low, Open Approach (ICD-10-PCS; CPT 59514; principal; 2021-08-12 16:00)
DX: O64.1XX0 Obstructed labor due to breech presentation, not applicable or unspecified (principal); D25.2 Subserosal leiomyoma of uterus; O42.013 Preterm premature rupture of membranes, onset of labor within 24 hours of rupture, third trimester; Z3A.36 36 weeks gestation of pregnancy; Z37.0 Single live birth; O24.424 Gestational diabetes mellitus in childbirth, insulin controlled; Z20.822 Contact with and (suspected) exposure to COVID-19
CPT/HCPCS: 36415; 58140; 59050; 59510; 59514; 84112; 85014; 85018; 85025; 86850; 86900; 86901; 87635; C9803; G0379; J0131; J0595; J0690; J1885; J2175; J2274; J2590

== ENCOUNTER → 2021-11-04 07:04 | Outpatient (CLI) | payer OTHER, SELFPAY ==
[2021-11-04 09:34] LABS: Glucose Tol Interpretation INTERPRETATION
[2021-11-04 09:54] LABS: Glucose Fasting 97 mg/dL (70-100)
[2021-11-04 09:54] LABS: Glucose 1 Hour 224 mg/dL (70-170)
[2021-11-04 11:00] LABS: Glucose 2 Hour 156 mg/dL (70-140)
== END ==
PROVIDERS: Family Provider Family Medicine; PCP Family Medicine; Referring Provider Obstetrics & Gynecology; Visit Provider Obstetrics & Gynecology
DX: O24.414 Gestational diabetes mellitus in pregnancy, insulin controlled (principal)
CPT/HCPCS: 36415; 82951; 82952

== ENCOUNTER → 2021-11-05 09:32 | Outpatient (CLI) | payer OTHER, SELFPAY ==
[2021-11-05 11:11] LABS: Alanine Aminotransferase 13 IU/L (<35); Albumin 4.5 g/dL (3.5-5.0); Albumin Globulin Ratio 1.3 (1.0-2.8); Alkaline Phosphatase 43 U/L (38-126); Aspartate Aminotransferase 23 IU/L (14-36); BUN Creatinine Ratio 19.7 (6-22); Bilirubin Total 0.4 mg/dL (0.2-1.3); Blood Urea Nitrogen 15 mg/dL (7-17); Calcium 9.5 mg/dL (8.4-10.2); Carbon Dioxide 29 mmol/L (22-32); Chloride 103 mmol/L (98-107); Estimated Glomerular Filt Rate > 60.0 mL/min (>60); Globulin 3.6 g/dL (1.7-4.1); Glucose 98 mg/dL (70-100); HEMOLYSIS < 15 (0-50); Potassium 3.9 mmol/L (3.4-5.1); Sodium 139 mmol/L (137-145); Total Protein 8.1 g/dL (6.3-8.2)
== END ==
PROVIDERS: Family Provider Family Medicine; PCP Family Medicine; Referring Provider Family Medicine; Visit Provider Family Medicine
DX: O24.414 Gestational diabetes mellitus in pregnancy, insulin controlled (principal)
CPT/HCPCS: 36415; 80053; 83036

== ENCOUNTER → 2021-12-10 17:19 | Outpatient (CLI) | payer OTHER, SELFPAY ==
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
== END ==
PROVIDERS: Family Provider Family Medicine; PCP Family Medicine; Referring Provider Family Medicine; Visit Provider Family Medicine
DX: R73.03 Prediabetes (principal); Z71.3 Dietary counseling and surveillance
CPT/HCPCS: 97802; G0108

== ENCOUNTER → 2021-12-20 11:31 | Outpatient (CLI) | payer OTHER, SELFPAY ==
[2021-12-20 19:28] LABS: Add Manual Diff / Slide Review NO; Basophils Absolute Auto 0 /uL (0-100); Basophils Percent Auto 0.6 % (0-2); Eosinophils Absolute Auto 0 /uL (0-450); Eosinophils Percent Auto 0.8 % (2-4); Hematocrit 36.6 % (36-46); Hemoglobin 12.4 g/dL (12.0-16.0); Lymphocytes Absolute Auto 2600 /uL (1100-4500); Lymphocytes Percent Auto 41.8 % (25-40); Mean Corpuscular HGB Conc 33.8 % (30-36); Mean Corpuscular Hemoglobin 28.1 PG (26-34); Mean Corpuscular Volume 83.2 fL (80-100); Monocytes Absolute Auto 500 /uL (0-900); Monocytes Percent Auto 8.4 % (3-14); Neutrophils Absolute Auto 3000 /uL (1500-7000); Neutrophils Percent Auto 48.4 % (50-75); Platelet Count 324 X10^3/uL (150-400); Red Cell Distribution Width 14.2 % (11.6-14.8); White Blood Cell Count 6.2 X10^3/uL (4.5-11.0)
[2021-12-20 19:40] LABS: Alanine Aminotransferase 11 IU/L (<35); Albumin 4.5 g/dL (3.5-5.0); Albumin Globulin Ratio 1.3 (1.0-2.8); Alkaline Phosphatase 37 U/L (38-126); Aspartate Aminotransferase 22 IU/L (14-36); BUN Creatinine Ratio 37.5 (6-22); Bilirubin Total 0.3 mg/dL (0.2-1.3); Blood Urea Nitrogen 24 mg/dL (7-17); Calcium 9.6 mg/dL (8.4-10.2); Carbon Dioxide 26 mmol/L (22-32); Chloride 107 mmol/L (98-107); Estimated Glomerular Filt Rate > 60.0 mL/min (>60); Globulin 3.4 g/dL (1.7-4.1); Glucose 105 mg/dL (70-100); HEMOLYSIS < 15 (0-50); Potassium 4.4 mmol/L (3.4-5.1); Sodium 139 mmol/L (137-145); Total Protein 7.9 g/dL (6.3-8.2)
[2021-12-20 19:42] LABS: Hemoglobin A1C% w Est Avg Glu 5.8 % (4.0-6.0)
== END ==
PROVIDERS: Family Provider Family Medicine; PCP Family Medicine; Visit Provider Family Medicine
DX: D64.9 Anemia, unspecified (principal); R73.03 Prediabetes; R73.9 Hyperglycemia, unspecified
CPT/HCPCS: 80053; 83036; 85025

== ENCOUNTER → 2022-03-08 08:11 | Outpatient (CLI) | payer OTHER, SELFPAY ==
--- NOTE | 2022-03-08 08:13 | DI.MRI.S_ITS ---
PROCEDURE: MR CERVICAL SPINE WO CON INDICATIONS: worsening neck pain, progressive radiculopathy C/N 02/10/22 TECHNIQUE: Noncontrast sagittal T1 spin echo and T2 fast spin echo, sagittal STIR, foraminal oblique sagittal T2 fast spin echo, and axial gradient echo or T2 fast spin echo through the cervical spine. COMPARISON: None. FINDINGS: Image quality: Excellent. Alignment and Curvature: There is normal bony alignment. Straightening of the normal cervical lordosis may be related to muscle spasm or positioning. Bone Marrow: Marrow demonstrates normal overall signal. Spinal Cord: Visualized spinal cord has normal size and signal. No cerebellar tonsillar herniation. Paraspinous Soft Tissues: No paravertebral masses. Prevertebral soft tissues are normal in thickness. C2-C3: Normal appearance. C3-C4: Normal appearance. C4-C5: Normal appearance. C5-C6: Disc height is maintained. Small posterior disc osteophyte complex results in mild central stenosis. No foraminal stenosis. C6-C7: Normal appearance. C7-T1: Normal appearance. IMPRESSION: Mild degenerative changes at C5-6 results in mild central without foraminal stenosis Approved by: Regino Rudolph M.D. on 03/08/2022 at 8:49
== END ==
PROVIDERS: Family Provider Family Medicine; PCP Family Medicine; Referring Provider Family Medicine; Visit Provider Family Medicine
DX: M54.2 Cervicalgia (principal); M47.812 Spondylosis without myelopathy or radiculopathy, cervical region; M48.02 Spinal stenosis, cervical region
CPT/HCPCS: 72141

== ENCOUNTER → 2023-02-09 10:19 | Outpatient (CLI) | payer OTHER, SELFPAY ==
--- NOTE | 2023-02-09 10:20 | DI.US.S_ITS ---
PROCEDURE: US PELVIC COMPLETE INDICATIONS: PAIN TECHNIQUE: Real-time scanning was performed of the pelvic organs, with image documentation. Additional endovaginal scanning was necessary due to incomplete visualization of the adnexal and endometrial structures by transabdominal scanning. COMPARISON: None. FINDINGS: Uterus: Uterus is retroverted and normal in size at 8.7 x 5.7 x 5.3 cm. Arcuate configuration of uterus is noted. The myometrium is heterogeneous. 2.6 x 2.5 x 2 cm intramural fibroid in right posterior myometrium is seen. The endometrium measures 9.1 mm combined thickness. No endometrial mass or fluid. Simple and complex appearing nabothian cysts are noted along endocervical canal. Ovaries: The right ovary measures 3.2 x 2.1 x 3.0 cm, with a calculated ovarian volume of 10.5 cc. The left ovary measures 1.7 x 1.3 x 1.1 cm. The ovaries have a normal sonographic appearance. Less than 12 follicles can be seen in each ovary. No adnexal masses are seen. Other: No pathologic free abdominal or pelvic fluid. IMPRESSION: 1. Heterogeneous myometrium with single intramural fibroid as above. Arcuate configuration of the uterus. No endometrial mass or fluid. 2. Normal appearing bilateral ovaries. 3. Nabothian cysts are noted along the endocervical canal. We strive to produce accurate, complete, and clear reports of imaging services. To assist us in improving patient care, this report was composed using standard report templates and voice recognition software. Therefore, it may contain abnormal punctuation, insertions and/or omissions. Occasional wrong-word or sound-alike substitutions may occur. Though we review the report and make efforts to correct it, we do recommend that the report be read carefully in proper context to recognize any text inaccuracies. Dictated by: Blake Wakefield M.D. on 02/09/2023 at 13:46 Approved by: Blake Wakefield M.D. on 02/09/2023 at 13:49
== END ==
PROVIDERS: Family Provider Family Medicine; PCP Family Medicine; Referring Provider Obstetrics & Gynecology; Visit Provider Obstetrics & Gynecology
DX: N94.6 Dysmenorrhea, unspecified (principal); D25.1 Intramural leiomyoma of uterus; R10.2 Pelvic and perineal pain; N13.0 Hydronephrosis with ureteropelvic junction obstruction; N88.8 Other specified noninflammatory disorders of cervix uteri
CPT/HCPCS: 36415; 76830; 76856; 84550; 85651; 86038; 86140; 86200; 86430

== ENCOUNTER → 2023-02-09 17:20 | Outpatient (CLI) | payer OTHER, SELFPAY ==
[2023-02-09 18:23] LABS: C-Reactive Protein Quant 1.2 mg/dL (<1.0); Uric Acid 6.8 mg/dL (2.5-6.2)
[2023-02-09 18:24] LABS: Erythrocyte Sedimentation Rate 30 MM/HR (0-20)
[2023-02-09 18:51] LABS: Rheumatoid Factor < 8.6 IU/mL (<12.0)
[2023-02-12 15:58] LABS: ANA Screen, IFA Negative (.)
[2023-02-12 19:28] LABS: CCP Antibodies IgG/IgA 3 units (0-19)
== END ==
PROVIDERS: Family Provider Family Medicine; PCP Family Medicine; Referring Provider Family Medicine; Visit Provider Family Medicine
DX: M13.0 Polyarthritis, unspecified (principal)
CPT/HCPCS: 36415; 84550; 85651; 86038; 86140; 86200; 86430

== ENCOUNTER → 2023-08-04 10:31 | Outpatient (CLI) | payer OTHER, SELFPAY | PROVIDERS: Family Provider Family Medicine; PCP Physician Assistant; Visit Provider Physician Assistant | DX: R35.0 Frequency of micturition (principal); Z12.4 Encounter for screening for malignant neoplasm of cervix; R10.2 Pelvic and perineal pain | CPT/HCPCS: 87086; 87798; 87801 ==

== ENCOUNTER → 2023-08-10 12:40 | Outpatient (CLI) | payer OTHER, SELFPAY ==
--- NOTE | 2023-08-10 13:00 | DI.US.S_ITS ---
PROCEDURE: US PELVIC COMPLETE INDICATIONS: PELVIC PAIN HISTORY OF OVARIAN CYST WITH SURGERY TECHNIQUE: Real-time scanning was performed of the pelvic organs, with image documentation. Additional endovaginal scanning was necessary due to incomplete visualization of the adnexal and endometrial structures by transabdominal scanning. COMPARISON: [facility], US, US PELVIC COMPLETE, 02/09/2023, 10:41. FINDINGS: Uterus: Uterus is retroverted and measures 10.1 x 4.7 x 6.9 cm. The myometrium is heterogeneous. Arcuate configuration of the uterus, as before. The endometrium measures 11.7 mm combined thickness. There is a fibroid the left posterior subserosal region which measures 3.7 x 2.4 x 2.6 cm. On prior ultrasound dated February 09, 2023, there was a right posterior intramural fibroid measuring 2.6 x 2.5 x 2 cm. Previously described both and cysts are not well seen on today's exam. Ovaries: The right ovary is not well seen. The left ovary measures 3.5 x 2.2 x 2.4 cm, with a calculated ovarian volume of 9.9 cc. There is a dominant follicle in the left ovary measuring 1.8 x 1.2 x 1.6 cm. Less than 12 follicles can be seen in the left ovary. No adnexal masses are seen. Other: No pathologic free abdominal or pelvic fluid. IMPRESSION: 1. Heterogeneous myometrium with single subserosal fibroid, as above. Arcuate configuration of the uterus. Endometrial thickness is 11.7 mm. 2. Right ovary is not well seen. Left ovary appears normal. Dictated by: Maxi Murguia M.D. on 08/10/2023 at 18:49 Approved by: Maxi Murguia M.D. on 08/10/2023 at 18:56
== END ==
PROVIDERS: Family Provider Family Medicine; PCP Physician Assistant; Referring Provider Physician Assistant; Visit Provider Physician Assistant
DX: D25.2 Subserosal leiomyoma of uterus (principal); R10.2 Pelvic and perineal pain
CPT/HCPCS: 76830; 76856; 93976

== ENCOUNTER → 2024-02-09 11:07 | Outpatient (CLI) | payer SELFPAY ==
[2024-02-09 19:52] LABS: Appearance Urine UA CLEAR; Bilirubin Urine UA NEGATIVE (NEGATIVE); Color Urine UA YELLOW; Glucose Urine UA NEGATIVE (Negative); Ketones Urine UA NEGATIVE (NEGATIVE); Leukocyte Esterase Urine UA TRACE (NEGATIVE); Nitrite Urine UA NEGATIVE (Negative); Occult Blood Urine UA NEGATIVE (Negative); Protein Urine UA NEGATIVE (Negative); Specific Gravity Urine UA 1.025 (1.000-1.035); Urobilinogen Urine UA 0.2 E.U./dL (0.2)
[2024-02-09 20:10] LABS: Add Manual Diff / Slide Review NO; Bacteria Urine Occasional (0-1); Basophils Absolute Auto 100 /uL (0-100); Culture Indicated Urine Specimen Cultured; Eosinophils Absolute Auto 100 /uL (0-450); Eosinophils Percent Auto 1.1 % (2-4); Hematocrit 38.4 % (36-46); Lymphocytes Absolute Auto 2700 /uL (1100-4500); Mean Corpuscular HGB Conc 33.7 % (30-36); Mean Corpuscular Hemoglobin 28.5 PG (26-34); Mean Corpuscular Volume 84.6 fL (80-100); Monocytes Absolute Auto 700 /uL (0-900); Monocytes Percent Auto 9.5 % (3-14); Neutrophils Absolute Auto 3800 /uL (1500-7000); Neutrophils Percent Auto 51.4 % (50-75); Platelet Count 352 X10^3/uL (150-400); RBC Urine None Seen (0-5/HPF); Red Blood Cell Count 4.54 X10^6/uL (4.0-5.2); Red Cell Distribution Width 13.4 % (11.6-14.8); Squamous Epithelial Cell Urine 5-10 /HPF (0-5/HPF); Urine Volume Low Vol <10mL (spun); WBC Urine 1-5/HPF (0-5/HPF); White Blood Cell Count 7.4 X10^3/uL (4.5-11.0)
[2024-02-09 20:12] LABS: Pregnancy Test Serum,Qual Negative (Negative)
[2024-02-09 20:15] LABS: Alanine Aminotransferase 14 IU/L (<35); Albumin 4.5 g/dL (3.5-5.0); Albumin Globulin Ratio 1.6 (1.0-2.8); Alkaline Phosphatase 50 U/L (38-126); Aspartate Aminotransferase 23 IU/L (14-36); BUN Creatinine Ratio 22.1 (6-22); Bilirubin Total 0.4 mg/dL (0.2-1.3); Blood Urea Nitrogen 17 mg/dL (7-17); Calcium 9.3 mg/dL (8.4-10.2); Carbon Dioxide 27 mmol/L (22-32); Chloride 105 mmol/L (98-107); Estimated Glomerular Filt Rate > 60 mL/min (>60); Globulin 2.9 g/dL (1.7-4.1); Glucose 104 mg/dL (70-100); HEMOLYSIS < 15 (0-50); Potassium 3.9 mmol/L (3.4-5.1); Sodium 137 mmol/L (137-145); Total Protein 7.4 g/dL (6.3-8.2)
== END ==
PROVIDERS: Family Provider Family Medicine; PCP Physician Assistant; Visit Provider Physician Assistant
DX: R10.2 Pelvic and perineal pain (principal)
CPT/HCPCS: 80053; 81001; 84703; 85025; 87086